=== PATIENT | female | born 1975 | race Hispanic/Latino ===

== ENCOUNTER 2019-02-06 11:07 | Emergency (ER) | payer OTHER, SELFPAY ==
--- OUTSIDE RECORDS SUMMARY | 2019-02-06 11:09 | XMS REPORT ---
:1975 Author Organization eClinicalWorks Care Team Providers Name Role Phone Chava [facility] Provider Role Unavailable Allergies No Known Allergies Problems Problem Type Condition Code Onset Dates Condition Status Problem HTN, goal below 140/90 I10 Active Problem Adult BMI 39.0-39.9 kg/sq m Z68.39 Active Problem Mixed hyperlipidemia E78.2 Active Problem Anxiety F41.9 Active Problem Fatty liver K76.0 Active Medications No Known Medications Results No Known Results Summary Purpose eClinicalWorks Submission
--- OUTSIDE RECORDS SUMMARY | 2019-02-06 11:09 | XMS REPORT ---
:1975 Author Organization eClinicalWorks Care Team Providers Name Role Phone Chava Gordo Provider Role Unavailable Allergies, Adverse Reactions, Alerts Substance Reaction Event Type N.K.D.A. Info Not Available Non Drug Allergy Problems Problem Type Condition Code Onset Dates Condition Status Assessment Fatty liver K76.0 Active Assessment Mixed hyperlipidemia E78.2 Active Assessment Adult BMI 39.0-39.9 kg/sq m Z68.39 Active Assessment Encounter for dietary counseling and Z71.3 Active surveillance Assessment Noncompliance with medication Z91.14 Active regimen Assessment Anxiety F41.9 Active Problem HTN, goal below 140/90 I10 Active Problem Adult BMI 39.0-39.9 kg/sq m Z68.39 Active Problem Mixed hyperlipidemia E78.2 Active Assessment HTN, goal below 140/90 I10 Active Problem Anxiety F41.9 Active Problem Fatty liver K76.0 Active Medications Medication Code Code Instructions Start End Status Dosage System Date Date Amlodipine [facility] 19308141017 5-20 MG Orally Active 1 capsule Besy-Benazepri once daily l HCl Results No Known Results Summary Purpose eClinicalWorks Submission
--- OUTSIDE RECORDS SUMMARY | 2019-02-06 11:09 | XMS REPORT ---
:1975 Author Organization eClinicalWorks Care Team Providers Name Role Phone Chava Gordo Provider Role Unavailable Allergies No Known Allergies [...] End Status Dosage System Date Date Amlodipine [facility] 63168266148 5-20 MG Orally Active 1 capsule Besy-Benazepri once a day l HCl Results No Known Results Summary Purpose eClinicalWorks Submission
--- OUTSIDE RECORDS SUMMARY | 2019-02-06 11:09 | XMS REPORT ---
[...] End Status Dosage System Date Date Amlodipine [facility] [id number] 5-20 MG Orally Active 1 capsule Besy-Benazepri once daily l HCl Results No Known Results Summary Purpose eClinicalWorks Submission
--- OUTSIDE RECORDS SUMMARY | 2019-02-06 11:09 | XMS REPORT ---
[...] End Status Dosage System Date Date Amlodipine [facility] [id number] 5-20 MG Orally Active 1 capsule Besy-Benazepri once daily l HCl Results No Known Results Summary Purpose eClinicalWorks Submission
[2019-02-06] MEDS ORDERED: HYDROCODONE/APAP 10/325 TAB ONE (11:55)
[2019-02-06] MEDS ORDERED: TETANUS & DIPHTHERIA TOX,ADULT 0.5 ML VIAL ONE (11:55)
[2019-02-06] MEDS ORDERED: AMPICILLIN/SULBACT 1.5 GM in NA CHLORIDE 0.9% 100 ML IVPB ONE (13:00)
--- NOTE | 2019-02-06 13:25 | ER ---
Nurse's Notes [facility] Name: Lilian Abraham Age: 43 yrs Sex: Female : 1975 Arrival Date: 02/06/2019 Time: 11:08 Bed 15 Private MD: Gordo Larsen Diagnosis: Abrasion of right hand;Bitten by cat;Laceration without foreign body of left wrist Presentation: 02/06 11:21 Presenting complaint: Patient states: was trying to break up a fight between her cats sv and 1 of the cats attacked her on the left hand/wrist. Transition of care: patient was not received from another setting of care. Onset of symptoms was February 06, 2019. Risk Assessment: Do you want to hurt yourself or someone else? Patient reports no desire to harm self or others. Care prior to arrival: None. 11:21 Method Of Arrival: Ambulatory sv 11:21 Acuity: OANH 3 sv 12:10 Initial Sepsis Screen: Does the patient meet any 2 criteria? No. Patient's initial ca1 sepsis screen is negative. Does the patient have a suspected source of infection? No. Patient's initial sepsis screen is negative. Triage Assessment: 12:09 Bite description: bite sustained to left hand is superficial, was sustained less than ca1 30 minutes ago. by a cat, animal information: vaccination(s) is current. Bite description: animal information:. General: Appears in no apparent distress. comfortable, Behavior is calm, cooperative, appropriate for age. 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 - Social history:: Smoking status: Patient/guardian denies using tobacco. - Ebola Screening: : Patient negative for fever greater than or equal to 101.5 degrees Fahrenheit, and additional compatible Ebola Virus Disease symptoms Patient denies exposure to infectious person Patient denies travel to an Ebola-affected area in the 21 days before illness onset No symptoms or risks identified at this time. Screenin:45 Abuse screen: Denies threats or abuse. Denies injuries from another. Nutritional ca1 screening: No deficits noted. Tuberculosis screening: No symptoms or risk factors identified. Fall Risk None identified. Assessment: 11:28 Reassessment: [place] PD notified, will pass on to animal hospital clerk. iw 11:45 General: Appears in no apparent distress. comfortable, Behavior is calm, cooperative, ca1 appropriate for age. Pain: Complains of pain in right hand Pain currently is 10 out of 10 on a pain scale. Neuro: Level of Consciousness is awake, alert, obeys commands, Oriented to person, place, time, situation. Derm: Skin is healthy with good turgor, Skin is pink, warm \T\ dry. Musculoskeletal: Circulation, motion, and sensation intact. Capillary refill < 3 seconds. Injury Description: Laceration sustained to left hand is contaminated, jagged, 7.6 to 20 cm long, not bleeding, was sustained less than 30 minutes ago. no active bleeding noted at this time. 12:41 Reassessment: Patient appears in no apparent distress at this time. Patient is alert, ca1 oriented x 3, equal unlabored respirations, skin warm/dry/pink. Xray at bedside. 13:16 Reassessment: Patient appears in no apparent distress at this time. Patient is alert, ca1 oriented x 3, equal unlabored respirations, skin warm/dry/pink. IV antibiotics completed and wound cleaned. 13:50 Reassessment: Patient appears in no apparent distress at this time. Patient is alert, ca1 oriented x 3, equal unlabored respirations, skin warm/dry/pink. wound dressed, wound care instructions given. Vital Signs: 11:22 BP 143 / 100; Pulse 144; Resp 22; Temp 98.6; Pulse Ox 96% ; Weight 97.98 kg; Height 5 sv ft. 3 in. (160.02 cm); Pain 10/10; 12:15 BP 136 / 88; Pulse 95; Resp 17 S; Pulse Ox 96% on R/A; ca1 13:16 BP 128 / 71; Pulse 99; Resp 17 S; Pulse Ox 97% on R/A; ca1 13:50 BP 126 / 75; Pulse 89; Resp 17 S; Pulse Ox 96% on R/A; ca1 11:22 Body Mass Index 38.26 (97.98 kg, 160.02 cm) sv ED Course: 11:08 Patient arrived in ED. mr 11:08 Gordo Larsen DO is Private Physician. mr 11:22 Triage completed. sv 11:23 Arm band placed on. sv 11:26 Myah Cleveland RN is Primary Nurse. ca1 11:27 Gordo Nieto NP is PHCP. pm1 11:27 Prashanth Kaur MD is Attending Physician. pm1 11:45 No provider procedures requiring assistance completed. ca1 11:49 Wound care: to CAT BITES located on left hand was soaked in Betadine solution, mh5 irrigated with normal saline. 11:50 Patient has correct armband on for positive identification. Bed in low position. Call mh5 light in reach. Side rails up X 1. Adult w/ patient. Pulse ox on. NIBP on. 12:05 Inserted saline lock: 22 gauge in right hand, using aseptic technique. ca1 13:24 Andrés Reyes MD is Referral Physician. pm1 13:46 Wrist Left (3 View) XRAY In Process Unspecified. EDMS 13:50 Dressings: Kerlix X 1; left hand 4X4s X 2; left hand. Wound care:. ca1 13:51 IV discontinued, intact, bleeding controlled, No redness/swelling at site. Pressure ca1 dressing applied. 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 Exp: ca1 08/19/2020. Lot #: [id number]. } Route: IM; Site: right deltoid; 12:41 Follow up: Response: No adverse reaction ca1 12:40 Drug: Unasyn 1.5 grams Route: IVPB; Infused Over: 30 mins; Site: right hand; ca1 13:29 Follow up: Response: No adverse reaction; IV Status: Completed infusion ca1 Outcome: 13:24 Discharge ordered by . pm1 13:51 Discharged to home ambulatory, with friend. ca1 13:51 Condition: stable 13:51 Discharge instructions given to patient, Instructed on discharge instructions, follow up and referral plans. medication usage, wound care, Demonstrated understanding of Prescriptions given X 2. 13:52 Patient left the ED. ca1 Signatures: Dispatcher [employer] EDMS Shasha, Fide, RN Aida Blount Irene, RN RN iw Marinas, Patrick, VINCENT TAPE RECORDING MACHINE OPERATOR pm1 Sherrill Carroll [facility] Myah Cleveland RN RN ca1 Corrections: (The following items were deleted from the chart) 13:16 13:16 Reassessment: Patient appears in no apparent distress at this time. Patient is ca1 alert, oriented x 3, equal unlabored respirations, skin warm/dry/pink. IV antibiotics completed. ca1
--- NOTE | 2019-02-06 13:25 | EDPHYS ---
Physician Documentation [facility] Name: Lilian Abraham Age: 43 yrs Sex: Female : 1975 Arrival Date: 02/06/2019 Time: 11:08 Bed 15 Private MD: Chava [facility] ED Physician Prashanth Kaur HPI: 02/06 12:05 This 43 yrs old Female presents to ER via Ambulatory with complaints of Cat pm1 Bite. 12:05 The patient was bitten on the palmar aspect of left wrist, by a cat, while trying to pm1 stop animals from fighting, at home. Onset: The symptoms/episode began/occurred just prior to arrival. Animal information: The animal was reported to appear healthy. Animal's vaccinations are up to date. Secondary to the bite the patient reports Abrasion to dorsal aspect of right hand and laceration to left wrist, palmar aspect and small puncture wound to palm of left hand. Associated signs and symptoms: Pertinent negatives: bony tenderness, fever, motor deficit, numbness distal to wound, suspected foreign body. The patient has not experienced similar symptoms in the past. The patient has not recently seen a physician. 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 - Social history:: Smoking status: Patient/guardian denies using tobacco. - Ebola Screening: : Patient negative for fever greater than or equal to 101.5 degrees Fahrenheit, and additional compatible Ebola Virus Disease symptoms Patient denies exposure to infectious person Patient denies travel to an Ebola-affected area in the 21 days before illness onset No symptoms or risks identified at this time. ROS: 12:05 Constitutional: Negative for fever, chills, and weight loss, Cardiovascular: Negative pm1 for chest pain, palpitations, and edema, Respiratory: Negative for shortness of breath, cough, wheezing, and pleuritic chest pain, Abdomen/GI: Negative for abdominal pain, nausea, vomiting, diarrhea, and constipation, Back: Negative for injury and pain. 12:05 MS/extremity: Positive for abrasion, laceration, puncture, of the left hand. 12:05 All other systems are negative. Exam: 12:05 Constitutional: This is a well developed, well nourished patient who is awake, alert, pm1 and in no acute distress. Head/Face: Normocephalic, atraumatic. Neck: Trachea midline, no thyromegaly or masses palpated, and no cervical lymphadenopathy. Supple, full range of motion without nuchal rigidity, or vertebral point tenderness. No Meningismus. Chest/axilla: Normal chest wall appearance and motion. Nontender with no deformity. No lesions are appreciated. Cardiovascular: Regular rate and rhythm with a normal S1 and S2. No gallops, murmurs, or rubs. Normal PMI, no JVD. No pulse deficits. Respiratory: Lungs have equal breath sounds bilaterally, clear to auscultation and percussion. No rales, rhonchi or wheezes noted. No increased work of breathing, no retractions or nasal flaring. Back: No spinal tenderness. No costovertebral tenderness. Full range of motion. 12:05 Musculoskeletal/extremity: Extremities: grossly normal except: noted in the palmar aspect of left wrist: laceration 2 - 1 cm long x 0.25 cm deep, noted in the heel of left hand: puncture, noted in the dorsum of left hand: abrasion, ROM: intact in all extremities, Circulation is intact in all extremities. 12:05 Neuro: Orientation: is normal, Motor: is normal, moves all fours, strength is normal, strength is 5/5 in all extremities. Vital Signs: 11:22 BP 143 / 100; Pulse 144; Resp 22; Temp 98.6; Pulse Ox 96% ; Weight 97.98 kg; Height 5 sv ft. 3 in. (160.02 cm); Pain 10/10; 12:15 BP 136 / 88; Pulse 95; Resp 17 S; Pulse Ox 96% on R/A; ca1 13:16 BP 128 / 71; Pulse 99; Resp 17 S; Pulse Ox 97% on R/A; ca1 13:50 BP 126 / 75; Pulse 89; Resp 17 S; Pulse Ox 96% on R/A; ca1 11:22 Body Mass Index 38.26 (97.98 kg, 160.02 cm) sv MDM: 11:37 Patient medically screened. pm1 13:21 Data reviewed: vital signs. Data interpreted: Pulse oximetry: on room air is 97 %. pm1 Interpretation: normal. Counseling: I had a detailed discussion with the patient and/or guardian regarding: the historical points, exam findings, and any diagnostic results supporting the discharge/admit diagnosis, radiology results, the need for outpatient follow up, to return to the emergency department if symptoms worsen or persist or if there are any questions or concerns that arise at home. 13:21 ED course: superficial lacerations not sutured due to risk of infection. Copiously pm1 irrigated with normal saline by industrial waste treatment technician. 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 Exp: ca1 08/19/2020. Lot #: [id number]. } Route: IM; Site: right deltoid; 12:41 Follow up: Response: No adverse reaction ca1 12:40 Drug: Unasyn 1.5 grams Route: IVPB; Infused Over: 30 mins; Site: right hand; ca1 13:29 Follow up: Response: No adverse reaction; IV Status: Completed infusion ca1 Disposition: 02/07 07:51 Co-signature as Attending Physician, Prashanth Kaur MD I agree with the assessment and kdr plan of care. Disposition: 02/06/19 13:24 Discharged to Home. Impression: Laceration without foreign body of left wrist, Abrasion of right hand, Bitten by cat. - Condition is Stable. - Discharge Instructions: Abrasion, Nonsutured Laceration Care, Animal Bite. - Prescriptions for Augmentin 875- 125 mg Oral Tablet - take 1 tablet by ORAL route every 12 hours for 10 days; 20 tablet. Tylenol- Codeine #3 300-30 mg Oral Tablet - take 2 tablets by ORAL route every 6 hours As needed; 20 tablet. - Medication Reconciliation Form, Thank You Letter, Antibiotic Education, Prescription Opioid Use form. - Follow up: Emergency Department; When: As needed; Reason: Worsening of condition. Follow up: Andrés Reyes MD; When: 2 - 3 days; Reason: Recheck today's complaints, Continuance of care, Re-evaluation by your physician. - Problem is new. - Symptoms have improved. Signatures: Dispatcher [employer] EDFide Luis RN RN sv Prashanth Kaur MD MD kdr Marinas, Patrick, NP DIVISION ROADMASTER pm1 Myah Cleveland RN RN ca1 Corrections: (The following items were deleted from the chart) 02/06 13:34 13:24 02/06/2019 13:24 Discharged to Home. Impression: Laceration without foreign body pm1 of right wristAbrasion of right hand; Bitten by cat. Condition is Stable. Forms are Medication Reconciliation Form, Thank You Letter, Antibiotic Education, Prescription Opioid Use. Follow up: Emergency Department; When: As needed; Reason: Worsening of condition. Follow up: Andrés Reyes; When: 2 - 3 days; Reason: Recheck today's complaints, Continuance of care, Re-evaluation by your physician. Problem is new. Symptoms have improved. pm1 13:52 13:34 02/06/2019 13:24 Discharged to Home. Impression: Laceration without foreign body ca1 of left wristAbrasion of right hand; Bitten by cat. Condition is Stable. Discharge Instructions: Abrasion, Nonsutured Laceration Care, Animal Bite. Prescriptions for Augmentin 875-125 mg Oral Tablet - take 1 tablet by ORAL route every 12 hours for 10 days; 20 tablet, Tylenol-Codeine #3 300-30 mg Oral Tablet - take 2 tablets by ORAL route every 6 hours As needed; 20 tablet. and Forms are Medication Reconciliation Form, Thank You Letter, Antibiotic Education, Prescription Opioid Use. Follow up: Emergency Department; When: As needed; Reason: Worsening of condition. Follow up: Andrés Reyes; When: 2 - 3 days; Reason: Recheck today's complaints, Continuance of care, Re-evaluation by your physician. Problem is new. Symptoms have improved. pm1
--- NOTE | 2019-02-06 14:42 | RAD REPORT ---
EXAM DESCRIPTION: RAD - Wrist Left 3 View - 02/06/2019 1:46 pm CLINICAL HISTORY: Left hand and wrist pain, animal bite COMPARISON: None. FINDINGS: No fracture is identified. There is no dislocation or periosteal reaction noted. No air or foreign body in the soft tissues. IMPRESSION: No bone or joint finding. No air or foreign body in the soft tissues.
[2019-02-06 14:59] VITALS: TEMP 98.6
[2019-02-06 15:03] VITALS: BP 126/75; O2SAT 96
== END 2019-02-06 13:52 | disposition home or self-care (01) ==
LOC: ER 11:07
DX: S61.512A Laceration without foreign body of left wrist, initial encounter (principal); S60.511A Abrasion of right hand, initial encounter; W55.01XA Bitten by cat, initial encounter; Y93.89 Activity, other specified; Y92.009 Unspecified place in unspecified non-institutional (private) residence as the place of occurrence of the external cause; Z23 Encounter for immunization; Z88.5 Allergy status to narcotic agent
CPT/HCPCS: 90471; 90714; 96365; 99284; J0295

== ENCOUNTER 2019-11-21 06:28 | Emergency (ER) | payer SELFPAY ==
--- OUTSIDE RECORDS SUMMARY | 2019-11-21 06:31 | XMS REPORT | Continuity of Care Document ---
:1975 Author Organization [facility] t Address [address] [place] [address] Care Team Providers Name Role Phone Unavailable Unavailable Unavailable Problems Condition Condition Condition Status Onset Resolution Last Treating Co mments Source Name Details Category Date Date Treatment Clinician Date Fatty Fatty Problem Active [facility] Anxiety Anxiety Problem [facility] HTN, goal HTN, goal Diagnosis Active [facility] below below [facility] - 140/90 140/90 [facility] Adult BMI Adult BMI Problem Active [facility] 39.0-39.9 39.0-39.9 Luke [facility] - kg/sq m kg/sq m [facility] Mixed Mixed Problem Active [facility] hyperlipid hyperlipid Светлана kes - emia emia [facility] Encounter Encounter Diagnosis Active [facility] for for [facility] - dietary dietary [facility] counseling counseling l and and Outpati surveillan surveillan en t ce ce Clinics Noncomplia Noncomplia Diagnosis Active [facility] with nce with [facility] - medication medication Me moria regimen regimen l [facility] ent Clinics Allergies, Adverse Reactions, Alerts This patient has no known allergies or adverse reactions. Medications Ordered Filled Start Stop Current Ordering Indication Dosage Frequency Signature Comments Components Source Medication Medication Date Date Medication? Clinician (SIG) Name Name Amlodipine Amlodipine Yes Gordo [address] [facility] Besy-Benaze Besy-Benaze Larsen [facility] - pril HCl pril HCl [facility] Procedures This patient has no known procedures. Encounters Start End Encounter Admission Attending Care Care Encounter Source Date/Time Date/Time Type Type Clinicians Facility Department ID 2019-06-03 2019-06-03 [facility] [id number] [address] 08:15[facility] 08:15:[address] Luke s - Drive [facility] Out[facility] Clinics 2019-01-24 2019-01-24 [facility] [id number] [address] 15:46:00 15:46:[address] [facility] s - Drive [facility] Clin[facility] 2018-08-30 2018-08-30 [facility] [id number] 13:30:00 13:30:00 [place] - [facility] Clin[facility] 2018-08-27 2018-08-27 [facility] [id number] 19:09:00 19:09:[address] [facility] [address] Event[facility]z s - Road [facility] Out[facility] Clinics 2018-05-06 2018-05-06 [facility] [id number] 15:14:00 15:14:00 [place] - [facility] Out[facility] Clinics 2018-04-15 2018-04-15 [facility] [id number] 09:30:00 09:30:00 [place] - Drive [facility] Clin[facility] 2017-08-24 2017-08-24 [facility] [id number] 14:00:00 14:00:00 t [email or web address] s - Drive [facility] Out[facility] Clinics Results This patient has no known results.
[2019-11-21] MEDS ORDERED: DIPHENHYDRAMINE 12.5MG/5ML LIQ ONE (07:13)
[2019-11-21] MEDS ORDERED: dexAMETHasone 10 MG/ML VIAL ONE (07:13)
[2019-11-21] MEDS ORDERED: TETRACAINE HCL 0.5% 4ML OPTH ONE (07:14)
[2019-11-21] MEDS ORDERED: PROMETHAZINE 25 MG TABLET ONE (07:14)
[2019-11-21] MEDS ORDERED: FLUORESCEIN SODIUM 1 MG/WRAP ONE (07:15)
--- NOTE | 2019-11-21 07:30 | EDPHYS ---
Physician Documentation [facility] Name: Lilian Abraham Age: 44 yrs Sex: Female : 1975 Arrival Date: 11/21/2019 Time: 06:29 Bed 7 Private MD: Chava [facility] ED Physician Roberta Vigil HPI: 11/20 07:27 This 44 yrs old Female presents to ER via Ambulatory with complaints of Eye snw Pain, Eye Swelling. 07:27 The patient is experiencing foreign body sensation, redness, tearing, eyelid edema, to snw both eyes, caused by poison gracia. Onset: The symptoms/episode began/occurred suddenly, 1 week(s) ago, and became worse and became persistent. Duration: the symptoms are continuous. Aggravated by scratching. Associated signs and symptoms: Pertinent positives: None. Severity of symptoms: At their worst the symptoms were moderate. The patient has not experienced similar symptoms in the past. It is unknown whether or not the patient has recently seen a physician. Pt wears glasses, frequent eye exams - as Son has glaucoma. 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 - Social history:: Smoking status: Patient denies any tobacco usage or history of. ROS: 07:26 Constitutional: Negative for fever, chills, and weight loss, ENT: Negative for injury, snw pain, and discharge, Neck: Negative for injury, pain, and swelling, Cardiovascular: Negative for chest pain, palpitations, and edema, Respiratory: Negative for shortness of breath, cough, wheezing, and pleuritic chest pain, Abdomen/GI: Negative for abdominal pain, nausea, vomiting, diarrhea, and constipation, Back: Negative for injury and pain, : Negative for injury, bleeding, discharge, and swelling, MS/Extremity: Negative for injury and deformity, Skin: Negative for injury and discoloration, + rash Neuro: Negative for headache, weakness, numbness, tingling, and seizure, Psych: Negative for depression, anxiety, suicide ideation, homicidal ideation, and hallucinations. 07:26 Eyes: Positive for itching, swelling, tearing, of the outer aspect of conjuctiva of right eye, inner aspect of conjuctiva of right eye, outer aspect of conjuctiva of left eye and inner aspect of conjunctiva of left eye. Exam: 07:11 Constitutional: This is a well developed, well nourished patient who is awake, alert, snw and in no acute distress. ENT: Nares patent. No nasal discharge, no septal abnormalities noted. Tympanic membranes are normal and external auditory canals are clear. Oropharynx with no redness, swelling, or masses, exudates, or evidence of obstruction, uvula midline. Mucous membranes moist. Neck: Trachea midline, no thyromegaly or masses palpated, and no cervical lymphadenopathy. Supple, full range of motion without nuchal rigidity, or vertebral point tenderness. No Meningismus. Chest/axilla: Normal chest wall appearance and motion. Nontender with no deformity. No lesions are appreciated. Cardiovascular: Regular rate and rhythm with a normal S1 and S2. No gallops, murmurs, or rubs. Normal PMI, no JVD. No pulse deficits. Respiratory: Lungs have equal breath sounds bilaterally, clear to auscultation and percussion. No rales, rhonchi or wheezes noted. No increased work of breathing, no retractions or nasal flaring. Abdomen/GI: Soft, non-tender, with normal bowel sounds. No distension or tympany. No guarding or rebound. No evidence of tenderness throughout. Back: No spinal tenderness. No costovertebral tenderness. Full range of motion. MS/ Extremity: Pulses equal, no cyanosis. Neurovascular intact. Full, normal range of motion. Neuro: Awake and alert, GCS 15, oriented to person, place, time, and situation. Cranial nerves II-XII grossly intact. Motor strength 5/5 in all extremities. Sensory grossly intact. Cerebellar exam normal. Normal gait. Psych: Awake, alert, with orientation to person, place and time. Behavior, mood, and affect are within normal limits. 07:11 Eyes: Periorbital structures: swelling, that is moderate, bilaterally, Extraocular movements: no acute changes, Conjunctiva: injected, tearing noted, in right eye, Corneas: are normal, a fluorescein strip employed to appreciate the findings, Sclera: no appreciated abnormality, Lids and lashes: edema, bilaterally. 07:11 Skin: contact dermatitis. Vital Signs: 06:37 BP 133 / 90; Pulse 92; Resp 18; Temp 98.4(O); Pulse Ox 97% on R/A; Weight 102.06 kg lp1 (R); Height 5 ft. 3 in. (160.02 cm); 08:10 BP 132 / 84; Pulse 87; Resp 18; Pulse Ox 99% on R/A; jr10 06:37 Body Mass Index 39.86 (102.06 kg, 160.02 cm) lp1 MDM: 06:48 Patient medically screened. snw 07:33 Data reviewed: vital signs, nurses notes. Data interpreted: Pulse oximetry: on room air snw is 97 %. Interpretation: normal. Counseling: I had a detailed discussion with the patient and/or guardian regarding: the historical points, exam findings, and any diagnostic results supporting the discharge/admit diagnosis, the need for outpatient follow up, to return to the emergency department if symptoms worsen or persist or if there are any questions or concerns that arise at home. Special discussion: I have referred the patient to see his PCP for further evaluation of high blood pressure. Based on the history and exam findings, there is no indication for further emergent testing or inpatient evaluation. I discussed with the patient/guardian the need to see the opthamologist for further evaluation of the symptoms, I discussed with the patient/guardian the need to see the primary care provider for further evaluation of the symptoms. 11/20 06:57 Order name: Eye Tray; Complete Time: 07:06 snw 11/20 06:57 Order name: Fluoresene Opth strip: 2 please; Complete Time: 07:16 snw Administered Medications: 07:04 Drug: Benadryl 25 mg Route: PO; mg2 07:04 Drug: Phenergan 25 mg Route: PO; mg2 07:05 Drug: Decadron - Dexamethasone 10 mg {Note: gioven po.} Route: IVP; Site: Other; mg2 07:16 Drug: Tetracaine Drops 0.5 % 1 drops {Note: given to Dulce RADIO SPORTSCASTER.} Route: Ophthalmic; sv Site: both eyes; 07:33 Drug: Fluorescein Strip 1 strip Route: Ophthalmic; Site: both eyes; mt2 07:33 Not Given (not available): ERYTHromycin Ointment 1 application Ophthalmic once snw 08:02 Drug: Tobramycin Ointment (0.3 %) 0.5 inches Route: Ophthalmic; Site: both eyes; jr10 Disposition: 17:20 Co-signature as Attending Physician, Roberta Vigil MD. al2 Disposition: 11/21/19 07:30 Discharged to Home. Impression: Irritant contact dermatitis. - Condition is Stable. - Discharge Instructions: Contact Dermatitis, Poison Gracia Dermatitis. - Prescriptions for Pepcid 20 mg Oral Tablet - take 1 tablet by ORAL route every 12 hours for 10 days; 20 tablet. Zyrtec 10 mg Oral Tablet - take 1 tablet by ORAL route once daily As needed; 20 tablet. Prednisone 20 mg Oral Tablet - take 2 tablet by ORAL route once daily for 5 days; 10 tablet. - Medication Reconciliation Form, Thank You Letter, Antibiotic Education, Prescription Opioid Use form. - Follow up: Emergency Department; When: As needed; Reason: Worsening of condition. Follow up: Private Physician; When: 1 - 2 days; Reason: Recheck today's complaints, Continuance of care, Re-evaluation by your physician. Signatures: Fide Pulliam RN Dulce Mendez, PROGRAM SUPPORT SPECIALIST-C PROGRAM SUPPORT SPECIALIST-Csnw Susan Hunt RN RN 1 Roberta Vigil MD MD al2 Thomas Klein, RACHELL RN mg2 Irma Escalante RN RN mt2 Zoey Conn RN RN jr10 Corrections: (The following items were deleted from the chart) 08:11 07:30 11/21/2019 07:30 Discharged to Home. Impression: Irritant contact dermatitis. jr10 Condition is Stable. Forms are Medication Reconciliation Form, Thank You Letter, Antibiotic Education, Prescription Opioid Use. Follow up: Emergency Department; When: As needed; Reason: Worsening of condition. Follow up: Private Physician; When: 1 - 2 days; Reason: Recheck today's complaints, Continuance of care, Re-evaluation by your physician. snw
--- NOTE | 2019-11-21 07:30 | ER ---
Nurse's Notes [facility] Name: Lilian Abraham Age: 44 yrs Sex: Female : 1975 Arrival Date: 11/21/2019 Time: 06:29 Bed 7 Private MD: Gordo Larsen Diagnosis: Irritant contact dermatitis Presentation: 11/20 06:34 Chief complaint: Patient states: contact with poison amberly last week; swelling to left lp1 eye; states feeling swelling to both eyes; rash to general body. Coronavirus screen: Client denies travel out of the [place] in the last 14 days. At this time, the client does not indicate any symptoms associated with coronavirus-19. Ebola Screen: No symptoms or risks identified at this time. Risk Assessment: Do you want to hurt yourself or someone else? Patient reports no desire to harm self or others. Onset of symptoms was November 21, 2019. 06:34 Method Of Arrival: Ambulatory lp1 06:34 Acuity: OANH 4 lp1 06:37 Initial Sepsis Screen: Does the patient meet any 2 criteria? No. Patient's initial lp1 sepsis screen is negative. Does the patient have a suspected source of infection? No. Patient's initial sepsis screen is negative. Triage Assessment: 08:10 General: Appears in no apparent distress. General: Behavior is calm, cooperative, jr10 appropriate for age. Pain: Complains of pain in right eye and left eye. 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 - Social history:: Smoking status: Patient denies any tobacco usage or history of. Screenin:36 Abuse screen: Denies threats or abuse. Denies injuries from another. Nutritional lp1 screening: No deficits noted. Tuberculosis screening: No symptoms or risk factors identified. Fall Risk None identified. Assessment: 07:15 Reassessment: Dulce DAIRY FARM SUPERVISOR at bedside. sv Vital Signs: 06:37 BP 133 / 90; Pulse 92; Resp 18; Temp 98.4(O); Pulse Ox 97% on R/A; Weight 102.06 kg lp1 (R); Height 5 ft. 3 in. (160.02 cm); 08:10 BP 132 / 84; Pulse 87; Resp 18; Pulse Ox 99% on R/A; jr10 06:37 Body Mass Index 39.86 (102.06 kg, 160.02 cm) lp1 ED Course: 06:29 Patient arrived in ED. am2 06:29 Gordo Larsen DO is Private Physician. am2 06:35 Triage completed. lp1 06:35 Arm band placed on. lp1 06:48 Dulce Chris F[facility]-C [facility] snw 06:48 Roberta Vigil MD is Attending Physician. snw 06:54 Irma Escalante, RACHELL is Primary Nurse. mt2 06:57 Patient has correct armband on for positive identification. Bed in low position. Call mh5 light in reach. Side rails up X 1. Pulse ox on. NIBP on. 07:16 Assist provider with eye exam of both eyes. using fluorescein stain, Performed by ki HEATH. 08:10 Patient did not have IV access during this emergency room visit. jr10 Administered Medications: 07:04 Drug: Benadryl 25 mg Route: PO; mg2 07:04 Drug: Phenergan 25 mg Route: PO; mg2 07:05 Drug: Decadron - Dexamethasone 10 mg {Note: gioven po.} Route: IVP; Site: Other; mg2 07:16 Drug: Tetracaine Drops 0.5 % 1 drops {Note: given to Dulce KAUR.} Route: Ophthalmic; sv Site: both eyes; 07:33 Drug: Fluorescein Strip 1 strip Route: Ophthalmic; Site: both eyes; mt2 07:33 Not Given (not available): ERYTHromycin Ointment 1 application Ophthalmic once snw 08:02 Drug: Tobramycin Ointment (0.3 %) 0.5 inches Route: Ophthalmic; Site: both eyes; jr10 Outcome: 07:30 Discharge ordered by . snw 08:10 Discharged to home ambulatory. jr10 08:10 Condition: good 08:10 Discharge instructions given to patient, Instructed on discharge instructions, follow up and referral plans. Demonstrated understanding of instructions, follow-up care, medications, Prescriptions given X 3. 08:11 Patient left the ED. jr10 Signatures: Fide Pulliam, RN RN Dulce Tripathi, POSSUM TRAPPER-C POSSUM TRAPPER-Csnw Susan Hunt RN RN lp1 Sherrill Carroll [facility] Tony, Hanny martinez2 Thomas Klein RN RN mg2 Irma Escalante RN RN mt2 Zoey Conn RN RN jr10
[2019-11-21] MEDS ORDERED: TOBRAMYCIN SULF 0.3% OPTH OINT ONE (08:06)
[2019-11-22 00:27] VITALS: TEMP 98.4
[2019-11-22 00:28] VITALS: BP 132/84; O2SAT 99
== END 2019-11-21 08:11 | disposition home or self-care (01) ==
LOC: ER 06:28
DX: L24.9 Irritant contact dermatitis, unspecified cause (principal); I10 Essential (primary) hypertension; Z88.5 Allergy status to narcotic agent
CPT/HCPCS: 96374; 99284; J1100; Q0163; Q0169

== ENCOUNTER 2020-04-17 19:50 | Emergency (ER) | payer SELFPAY ==
--- OUTSIDE RECORDS SUMMARY | 2020-04-17 19:53 | XMS REPORT | Continuity of Care Document ---
:1975 Author Organization [facility] t Address [address] Izquierdo [address] [place] [address] Care Team Providers Name Role Phone Shruti Mcgregor Attending Clinician Problems Condition Condition Condition Status Onset Resolution Last Treating Co mments Source Name Details Category Date Date Treatment Clinician Date Fatty Fatty Problem Active [facility] Anxiety Anxiety Problem [facility] HTN, goal HTN, goal Diagnosis Active C [facility] below below [facility] - 140/90 140/90 [facility] ent [facility] Adult BMI Adult BMI Problem Active [facility] 39.0-39.9 39.0-39.9 [facility] - kg/sq m kg/sq m [facility] Mixed Mixed Problem Active [facility] hyperlipid hyperlipid Светлана kes - emia emia [facility] ent Clinics Encounter Encounter Diagnosis Active C [facility] for for [facility] - dietary dietary [facility]oria counseling counseling l and and [facility] surveillan surveillan en t ce ce Clinics Noncomplia Noncomplia Diagnosis Active [facility] nce with nce with [facility] - medication medication Me moria regimen regimen l [facility] ent Clinics Allergies, Adverse Reactions, Alerts This patient has no known allergies or adverse reactions. Medications Ordered Filled Start Stop Current Ordering Indication Dosage Frequency Signature Comments Components Source Medication Medication Date Date Medication? Clinician (SIG) Name Name Amlodipine Amlodipine Yes Gordo [address] [facility]en [facility] - pril HCl pril HCl [facility] Outpati ent Clinics Procedures This patient has no known procedures. Encounters Start End Encounter Admission Attending Care Care Encounter Source Date/Time Date/Time Type Type Clinicians Facility Department ID 2020-04-12 2020-04-12 Emergency Ike Ochoa [facility] [id number] 17:37:00 18:27:00 Shruti Ghotra [id number] [place] [id number] [place] [id number] 2019-06-03 2019-06-03 [facility] [id number] 08:15:00 08:15:00 [employer] [facility] Medicine Outpati ent Clinics 2019-01-24 2019-01-24 [facility] [id number] 15:46:00 15:46:00 [employer] [facility] Medicine Outpati ent Clinics 2018-08-30 2018-08-30 [facility] [id number] 13:30:00 13:30:00 [employer] [facility] Medicine Outpati ent Clinics 2018-08-27 2018-08-27 [facility] [id number] 19:09:00 19:09:00 [facility] Medicine Outpati ent Clinics 2018-05-06 2018-05-06 [facility] [id number] 15:14:00 15:14:00 [employer] [facility] Medicine Outpati ent Clinics 2018-04-15 2018-04-15 [facility] [id number] 09:30:00 09:30:00 [employer] [facility] Medicine Outpati ent Clinics 2017-08-24 2017-08-24 [facility] [id number] 14:00:00 14:00:00 [employer] [facility] Medicine Outpati ent Clinics Results This patient has no known results.
--- OUTSIDE RECORDS SUMMARY | 2020-04-17 19:53 | XMS REPORT | Summary of Care ---
:1975 Author Organization [facility] - Health Address [address] [place] [address] Care Team Providers Name Role Phone Jeannette Carolina Travis [facility] Primary Care Provider [phone] Reason for Visit Reason Comments Rash Auth/Cert Status Reason Specialty Diagnoses / Referred By Referred To Procedures Contact Contact Emergency Medicine Ad[facility] Em ergency Dept [address] [place] [phone] Fax: Encounter Details Date Type Department Care Team Description 04/12/2020 Emergency [facility]-Emergency Ike Ochoa, BRENT Poison gracia (Primary Department [address] [place] [address] Dr Desouza) [address] [place] [address] [phone] [place] [address] [phone] Allergies Active Allergy Reactions Severity Noted Date Comments Morphine Hives 02/10/2015 documented as of this encounter (statuses as of 04/12/2020) Medications Medication Sig Dispensed Refills Start Date End Date Status losartan (COZAAR) 100 mg Take 50 mg by 0 Active tablet mouth daily. doxycycline (VIBRAMYCIN) Take 1 Cap by 20 Cap 0 02/10/2015 Active 100 mg capsule mouth 2 (two) times daily. methylPREDNISolone Take by mouth 21 Each 0 04/12/2020 Active (MEDROL, GAYLA,) 4 mg SEE-INSTRUCTIONS tabletsIndications: . 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 documented as of this encounter Last Filed Vital Signs Vital Sign Reading Time Taken Comments Blood Pressure 146/94 04/12/2020 5:35 PM [employer]ANT MANAGER Pulse 90 04/12/2020 5:35 PM [employer] MANAGER Temperature 37.2 C (98.9 F) 04/12/2020 5:35 PM [employer] MANAGER Respiratory Rate 18 04/12/2020 5:35 PM [employer]OM[employer]OWER PLANT MANAGER Oxygen Saturation 98% 04/12/2020 5:35 PM BIOM[employer] POWER PLANT MANAGER Inhaled Oxygen Concentration - - Weight 97.5 kg (215 lb) 04/12/2020 5:35 PM BIOMASS POWER PLANT MANAGER Height 160 cm (5' 3") 04/12/2020 5:35 PM BIOMASS POWER PLANT MANAGER Body Mass Index 38.09 04/12/2020 5:35 PM BIOM[employer]ANT MANAGER documented in this encounter Discharge Instructions AttachmentsThe following attachments cannot be sent through Care Everywhere. Poison Gracia, Poison [place], or Poison [place]ac Reaction, Managing a (Ukrainian)documented in this encounter ED Notes Vee Aguilar RN - 04/12/2020 5:32 PM CSTPt states "I think I got into poison gracia", c/o rash to bilateral arms and legs, abdomen, and groin. Reports itching and burning. Has taken Benadryl OTC and Hydrocortisone cream. VSS. 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 No signs of distress observed. RR even and unlabored. Encouraged to return to ER if symptoms worsen. ASS POWER PLANT MANAGER documented in this encounter Plan of Treatment Health Maintenance Due Date Last Done Comments Depression Screening 1987 SARS-CoV-2 (COVID-19) Vaccine (1 1991 of 2) DTaP,Tdap,and Td Vaccines (1 - 09/12/1994 Tdap) PAP SMEAR 09/12/1996 Breast Cancer Screening 2015 (MAMMOGRAM) INFLUENZA VACCINE (#1) 2019 PNEUMOCOCCAL 0-64 YEARS COMBINED Aged Out No longer eligible based on SERIES patient's age to complete this topic documented as of this encounter Procedures Procedure Name Priority Date/Time Associated Diagnosis Comme nts NOTICE OF PRIVACY Routine 04/12/2020 5:24 PM BIOMASS POWER PLANT MANAGER PRACTICES documented in this encounter Results Not on filedocumented in this encounter Visit Diagnoses Diagnosis Poison gracia - Primary Contact dermatitis and other eczema due to plants (except food) documented in this encounter Administered Medications Medication Order MAR Action Action Date Dose Rate Site methylprednisolone sod succ Given 04/12/2020 6:12 PM 125 mg Left Arm (SOLU-MEDROL) injection 125 mg BIOMASS POWER PLANT MANAGER 125 mg, Intramuscular, ONCE, 1 dose, Beth 04/12/20 at 1915, STAT documented in this encounter
[2020-04-17] MEDS ORDERED: METHYLPREDNISOLONE 125 MG INJ ONE (21:09)
[2020-04-17] MEDS ORDERED: FAMOTIDINE 20 MG TAB ONE (21:09)
--- NOTE | 2020-04-17 21:32 | EDPHYS ---
Physician Documentation [facility] Name: Lilian Abraham Age: 44 yrs Sex: Female : 1975 Arrival Date: 04/17/2020 Time: 19:51 Bed 12 Private MD: Chava [facility] ED Physician Wang Soriano HPI: 04/17 22:26 This 44 yrs old Female presents to ER via Ambulatory with complaints of Rash. kb 22:26 The patient's rash thought to be caused by Contact allergy. The rash is located on the kb body diffusely. The rash can be described as erythematous. Onset: The symptoms/episode began/occurred 5 day(s) ago. Associated signs and symptoms: Pertinent positives: itching. Severity of symptoms: At their worst the symptoms were moderate in the emergency department the symptoms are unchanged. Treatment given at home: Benadryl, oral steroids. The patient has not experienced similar symptoms in the past. The patient has not recently seen a physician. Pt reports she has a rash from poison gracia. Was put on steroids 5 days ago at [facility] (described medrol dose pack). Pt states the rash was getting better, but then came back yesterday and is now spreading. Started on bilateral arms, now on arms, legs and trunk. 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 - Social history:: Smoking status: Patient/guardian denies using tobacco, the patient reports quitting approximately 12 years ago. ROS: 22:25 Constitutional: Negative for fever, chills, and weight loss, Cardiovascular: Negative kb for chest pain, palpitations, and edema, Respiratory: Negative for shortness of breath, cough, wheezing, and pleuritic chest pain, Abdomen/GI: Negative for abdominal pain, nausea, vomiting, diarrhea, and constipation, MS/Extremity: Negative for injury and deformity, Neuro: Negative for headache, weakness, numbness, tingling, and seizure. 22:25 Skin: Positive for rash, diffusely. Exam: 22:25 Constitutional: This is a well developed, well nourished patient who is awake, alert, kb and in no acute distress. Head/Face: Normocephalic, atraumatic. Chest/axilla: Normal chest wall appearance and motion. Nontender with no deformity. No lesions are appreciated. Cardiovascular: Regular rate and rhythm with a normal S1 and S2. No gallops, murmurs, or rubs. Normal PMI, no JVD. No pulse deficits. Respiratory: Lungs have equal breath sounds bilaterally, clear to auscultation and percussion. No rales, rhonchi or wheezes noted. No increased work of breathing, no retractions or nasal flaring. Abdomen/GI: Soft, non-tender, with normal bowel sounds. No distension or tympany. No guarding or rebound. No evidence of tenderness throughout. MS/ Extremity: Pulses equal, no cyanosis. Neurovascular intact. Full, normal range of motion. Neuro: Awake and alert, GCS 15, oriented to person, place, time, and situation. Cranial nerves II-XII grossly intact. Motor strength 5/5 in all extremities. Sensory grossly intact. Cerebellar exam normal. Normal gait. 22:25 Skin: consistent with contact dermatitis, and is diffusely located. Vital Signs: 20:47 BP 151 / 89; Pulse 97; Resp 16 S; Temp 97.4(TE); Pulse Ox 97% on R/A; Weight 98.88 kg ca1 (R); Height 5 ft. 3 in. (160.02 cm) (R); Pain 0/10; 20:47 Body Mass Index 38.62 (98.88 kg, 160.02 cm) ca1 MDM: 20:52 Patient medically screened. kb 22:23 Data reviewed: vital signs, nurses notes. Data interpreted: Pulse oximetry: on room air kb is 97 %. Interpretation: normal. Counseling: I had a detailed discussion with the patient and/or guardian regarding: the historical points, exam findings, and any diagnostic results supporting the discharge/admit diagnosis, the need for outpatient follow up, a family practitioner, to return to the emergency department if symptoms worsen or persist or if there are any questions or concerns that arise at home. Administered Medications: 21:08 Drug: SOLU-Medrol 125 mg Route: IM; Site: right gluteus; kb 21:08 Drug: Pepcid 20 mg Route: PO; kb Disposition: 04/18 06:44 Co-signature as Attending Physician, Wang Soriano MD I agree with the assessment and aureliano plan of care. Disposition: 04/17/20 21:31 Discharged to Home. Impression: Allergic contact dermatitis due to plants, except food. - Condition is Stable. - Discharge Instructions: Poison Gracia Dermatitis, [id number], Contact Dermatitis, [id number]. - Prescriptions for Pepcid 20 mg Oral Tablet - take 1 tablet by ORAL route every 12 hours for 5 days; 10 tablet. Prednisone 20 mg Oral Tablet - take 1 tablet by ORAL route once daily for 5 days; 5 tablet. - Medication Reconciliation Form, Thank You Letter, Antibiotic Education, Prescription Opioid Use form. - Follow up: Emergency Department; When: As needed; Reason: Worsening of condition. Follow up: Private Physician; When: 2 - 3 days; Reason: Recheck today's complaints, Continuance of care, Re-evaluation by your physician. Signatures: Malinda Michele, KUMAR GUAN-Wang Yanez MD MD cha Munoz, Edgar, RN RN em Myah Cleveland RN RN ca1 Corrections: (The following items were deleted from the chart) 04/17 21:36 21:31 04/17/2020 21:31 Discharged to Home. Impression: Allergic contact dermatitis due em to plants, except food. Condition is Stable. Forms are Medication Reconciliation Form, Thank You Letter, Antibiotic Education, Prescription Opioid Use. Follow up: Emergency Department; When: As needed; Reason: Worsening of condition. Follow up: Private Physician; When: 2 - 3 days; Reason: Recheck today's complaints, Continuance of care, Re-evaluation by your physician. kb
--- NOTE | 2020-04-17 21:32 | ER ---
Nurse's Notes [facility] Name: Lilian Abraham Age: 44 yrs Sex: Female : 1975 Arrival Date: 04/17/2020 Time: 19:51 Bed 12 Private MD: Gordo Larsen Diagnosis: Allergic contact dermatitis due to plants, except food Presentation: 04/17 20:47 Chief complaint: Patient states: Rashes on upper and lower extremities and abdominal ca1 area started the weekend. Was at [facility], had shots and prescriptions. It got better, but am breaking out again. Coronavirus screen: Client denies travel out of the [place] in the last 14 days. At this time, the client does not indicate any symptoms associated with coronavirus-19. Ebola Screen: Patient negative for fever greater than or equal to 101.5 degrees Fahrenheit, and additional compatible Ebola Virus Disease symptoms Patient denies exposure to infectious person. Patient denies travel to an Ebola-affected area in the 21 days before illness onset. No symptoms or risks identified at this time. Initial Sepsis Screen: Does the patient meet any 2 criteria? No. Patient's initial sepsis screen is negative. Does the patient have a suspected source of infection? No. Patient's initial sepsis screen is negative. Risk Assessment: Do you want to hurt yourself or someone else? Patient reports no desire to harm self or others. Onset of symptoms was April 17, 2020. 20:47 Method Of Arrival: Ambulatory ca1 20:47 Acuity: OANH 4 ca1 Triage Assessment: 20:52 General: Appears in no apparent distress. comfortable, Behavior is calm, cooperative, ca1 appropriate for age. Pain: Denies pain. Neuro: Level of Consciousness is awake, alert, obeys commands, Oriented to person, place, time, situation. Derm: Skin is intact, is healthy with good turgor, Skin is pink, warm \T\ dry. Rash noted that is macular, urticaria, on abdomen, right arm, left arm, right leg and left leg. Musculoskeletal: Circulation, motion, and sensation intact. Capillary refill < 3 seconds. 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 - Social history:: Smoking status: Patient/guardian denies using tobacco, the patient reports quitting approximately 12 years ago. Screenin:53 Abuse screen: Denies threats or abuse. Denies injuries from another. Nutritional ca1 screening: No deficits noted. Tuberculosis screening: No symptoms or risk factors identified. Fall Risk None identified. Assessment: 20:53 Reassessment: See triage notes. ca1 Vital Signs: 20:47 BP 151 / 89; Pulse 97; Resp 16 S; Temp 97.4(TE); Pulse Ox 97% on R/A; Weight 98.88 kg ca1 (R); Height 5 ft. 3 in. (160.02 cm) (R); Pain 0/10; 20:47 Body Mass Index 38.62 (98.88 kg, 160.02 cm) ca1 ED Course: 19:51 Patient arrived in ED. am2 19:51 Godro Larsen DO is Private Physician. am2 20:52 Triage completed. ca1 20:52 Malinda Michele FNP-C [facility]. kb 20:52 Wang Soriano MD is Attending Physician. kb 20:52 Arm band placed on right wrist. ca1 20:53 Myah Cleveland, RN is Primary Nurse. ca1 20:53 Patient has correct armband on for positive identification. Call light in reach. Side ca1 rails up X 1. Pulse ox on. NIBP on. 21:35 No provider procedures requiring assistance completed. Patient did not have IV access em during this emergency room visit. Administered Medications: 21:08 Drug: SOLU-Medrol 125 mg Route: IM; Site: right gluteus; kb 21:08 Drug: Pepcid 20 mg Route: PO; kb Outcome: 21:31 Discharge ordered by . kb 21:35 Discharged to home ambulatory. em 21:35 Condition: good 21:35 Discharge instructions given to patient, Instructed on discharge instructions, follow up and referral plans. medication usage, Demonstrated understanding of instructions, follow-up care, medications, Prescriptions given X 2. 21:36 Patient left the ED. em Signatures: Malinda Michele FNP-C FNP-Ckb Otis Soria, RN RN em Hanny Jimenez am2 Myah Cleveland, RN RN ca1
[2020-04-17 21:52] VITALS: BP 151/89; TEMP 97.4; O2SAT 97
== END 2020-04-17 21:36 | disposition home or self-care (01) ==
LOC: ER 19:50
DX: L23.7 Allergic contact dermatitis due to plants, except food (principal); Z87.891 Personal history of nicotine dependence; I10 Essential (primary) hypertension
CPT/HCPCS: 96372; 99283; J2930

== ENCOUNTER 2021-05-08 16:23 | Emergency (ER) | payer SELFPAY ==
--- OUTSIDE RECORDS SUMMARY | 2021-05-08 16:26 | XMS REPORT | Continuity of Care Document ---
:[address] [facility] t Address [address] [place] [address] [address]. [address] [place] [address] Care Team Providers Name Role Phone Sandra Larsen Attending Clinician Unavailable CARMINE Attending Clinician Unavailable Shruti Mcgregor Attending Clinician Problems Condition Condition Condition Status Onset Resolution Last Treating Co mments Source Name Details Category Date Date Treatment Clinician Date Pyelonephr Pyelonephr Disease Active 2009-03 U nivers itis itis 0-18 [place] Bran ch Chronic Chronic Disease Active 2009-03 Univers hypertensi hypertensi 0-18 it y of on in on in 00:00: [place] obstetric obstetric 00 [facility] context context Branch Allergies, Adverse Reactions, Alerts Allergy Allergy Status Severity Reaction(s) Onset Inactive Treating Comm ents Source Name Type Date Date Clinician Morphine Propensi Active Hives 2014-03 Univer s ty to 04-12 ity of adverse 00:00: [place] reaction 00 Medical s Branch MORPHINE DRUG Active Hives 2014-03 Univers INGREDI 04-12 ity of 00:00: [place] 00 Medical Branch NO KNOWN Drug Active Univers ALLERGIE Class ity of [facility] Social History Social Habit Start Date Stop Date Quantity Comments Source Sex Assigned At Uni [facility] Exposure to SARS-CoV-2 [facility] sure [facility] [place] Smoking Status Start Date Stop Date Source Unknown if ever smoked [facility] Medications Ordered Filled Start Stop Current Ordering Indication Dosage Frequency Signature Comments Components Source Medication Medication Date Date Medication? Clinician (SIG) Name Name methylpredn No 125mg 125 mg, U nivers isolone sod 04-13 Intramuscu i ty of succ 01:15: 00:12 lar, ONCE, [place] (SOLU-MEDRO 00 :00 1 dose, Medic al L) Beth [place]ia injection 04/12/20 at 125 mg 1915, STAT methylPREDN Yes Take by [facility] ISolone 04-12 mouth ity of (MEDROL, 00:00: SEE-INSTRU Errol as GAYLA,) 4 mg 00 CTIONS. Medica l tablets follow [place] package directions losartan 2014-03 Yes 50mg Take 50 mg Uni vers (COZAAR) 04-12 by mouth ity of 100 mg 07:27: daily. [place] tablet 18 [facility] doxycycline 2014-03 Yes 100mg Take 1 Cap Univers (VIBRAMYCIN 04-12 by mouth 2 it y of ) 100 mg 00:00: (two) [place] capsule 00 times Medical daily. [place] Amlodipine Amlodipine Yes Gordo [address] [facility] HCl pril HCl [facility] Vital Signs Vital Name Observation Time Observation Value Comments Source Systolic blood 2020-04-12 23:35:00 146 mm[Hg] Univer sity of pressure [facility] Diastolic blood 2020-04-12 23:35:00 94 mm[Hg] [facility] rsity of [facility] Heart rate 2020-04-12 23:35:00 90 /min [facility] Body temperature 2020-04-12 23:35:00 37.17 Nata [facility] Respiratory rate 2020-04-12 23:35:00 18 /min [facility] Body height 2020-04-12 23:35:00 160 cm [facility] Body weight 2020-04-12 23:35:00 97.523 kg [facility] BMI 2020-04-12 23:35:00 38.09 kg/m2 Universi [facility] Oxygen saturation in 2020-04-12 23:35:00 98 /min University of Arterial blood by [facility] Pulse oximetry Branch Systolic blood 2020-04-12 23:35:00 146 mm[Hg] Univer sity of pressure [facility] Diastolic blood 2020-04-12 23:35:00 94 mm[Hg] Unive rsity of pressure [facility] Heart rate 2020-04-12 23:35:00 90 /min Universi [facility] Body temperature 2020-04-12 23:35:00 37.17 Nata [facility] Respiratory rate 2020-04-12 23:35:00 18 /min [facility] Body height 2020-04-12 23:35:00 160 cm [facility] Body weight 2020-04-12 23:35:00 97.523 kg [facility] BMI 2020-04-12 23:35:00 38.09 kg/m2 [facility] Oxygen saturation in 2020-04-12 23:35:00 98 /min University of Arterial blood by [facility] Pulse oximetry Branch Procedures Procedure Date / Time Performed Performing Clinician [facility] e NOTICE OF PRIVACY 2020-04-12 23:24:25 Doctor Unassigned, No Univ [facility] Name Medical Branch Encounters Start End Encounter Admission Attending Care Care Encounter Source Date/Time Date/Time Type Type Clinicians Facility Department ID 2021-04-10 Outpatient Lars[facility], [facility] [id number] 12:52:07 Gordo [id number] [facility] 2021-04-10 Outpatient Larsen, STLMLC [facility] [id number] 12:51:26 Gordo [id number] [facility] 2021-04-10 Outpatient Larsen, STLMLC [facility] [id number] 11:17:25 Gordo [id number] [facility] 2021-04-10 Outpatient Larsen, STLMLC [facility] [id number] 11:14:51 Gordo [id number] [facility] 2021-03-22 2021-03-22 Outpatient R CARMINE, [facility] [id number] Univers 18:15:00 18:15:00 FERNANDO olmedo [facility] 2021-01-04 2021-01-04 Outpatient STLMLC [facility] [id number] [facility] 2021-01-03 2021-01-03 Outpatient STLMLC [facility] [id number] [facility] 2021-01-03 2021-01-03 Outpatient STLMLC [facility] [id number] [facility] 2020-06-27 2020-06-27 Outpatient [facility] [id number] [facility] 2020-04-12 2020-04-12 Emergency Don, K [facility] [id number] Univers 17:37:00 18:27:00 Shruti Ghotra [id number] i ty of [place] [id number] [facility] [id number] [address] 2020-04-12 2020-04-12 Emergency Ike Ochoa [facility] [id number] 17:37:00 18:27:00 Shruti Ghotra [id number] [place] [id number] [place] [address] [id number] [facility] 2020-04-12 2020-04-12 Emergency X [facility] ERT [id number] Univers 17:24:00 17:24:00 ity of [facility] 2019-06-03 2019-06-03 [facility] [id number] 08:15:00 08:15:00 t [employer] [facility] - Drive [facility] Out[facility] Clinics 2019-01-24 2019-01-24 [facility] [id number] 15:46:00 15:46:00 [employer] - Drive [facility] Out[facility] Clin[facility] 2018-08-30 2018-08-30 [facility] [id number] 13:30:00 13:30:00 [employer] - Drive [facility] 2018-08-27 2018-08-27 [facility] [id number] 19:09:00 19:09:00 [facility] - Road [facility] 2018-05-06 2018-05-06 [facility] [id number] 15:14:00 15:14:00 t [employer] - Drive [facility] 2018-04-15 2018-04-15 [facility] [id number] 09:30:00 09:30:00 t [employer] - [facility] 2017-08-24 2017-08-24 [facility] [id number] 14:00:00 14:00:[address] [employer] - [address] [facility] Results This patient has no known results.
[2021-05-08 18:01] LABS: Absolute Lymphocytes (CBC) 1.7 K/uL (0.7-4.9); Hematocrit 40.8 % (36.0-45.0); Lymphocytes % 30.1 % (15.3-44.8); MPV 8.5 fL (7.6-11.3); Protime INR 0.92; RBC Red Blood Cell Count 4.61 M/uL (3.86-4.86)
[2021-05-08 18:15] LABS: Urine Blood 3+ (Negative); Urine Glucose Negative (Negative); Urine Protein 1+ (Negative); Urine Specific Gravity 1.015 (1.005-1.030); Urine pH 6.5 (5.0-7.0)
[2021-05-08 18:28] LABS: Urine Specific Gravity/Preg 1.015 (1.005-1.030)
--- NOTE | 2021-05-08 18:34 | RAD REPORT ---
EXAM DESCRIPTION: RAD - Chest Single View - 05/08/2021 6:16 pm CLINICAL HISTORY: CHEST PAIN Chest pain. COMPARISON: CHEST SINGLE VIEW dated 09/15/2014; CHEST SINGLE VIEW dated 07/17/2013; CHEST SINGLE VIEW da iris 02/01/2002 FINDINGS: Portable technique limits examination quality. The lungs are grossly clear. The heart is normal in size. No displaced fractures. IMPRESSION: No acute intrathoracic process suspected.
[2021-05-08 18:56] LABS: Urine Bacteria <20 /HPF (<20); Urine RBC 20-50 /HPF (NONE SEEN)
[2021-05-08 19:07] LABS: SARS-COV-2 RT PCR NEGATIVE (NEGATIVE)
[2021-05-08] MEDS ORDERED: ASPIRIN EC 81 MG TAB PO ONE (19:56)
[2021-05-08] MEDS ORDERED: METOPROLOL TAR 25 MG TAB ONE (19:56)
[2021-05-08] MEDS ORDERED: KCL 20 MEQ/100 mL IVPB 100 ML IV ONE (19:56)
[2021-05-08] MEDS ORDERED: POTASSIUM 25 MEQ EFFERV TAB ONE (20:01)
[2021-05-08] MEDS ORDERED: NA CHLORIDE 0.9% 500 ML ONE (21:21)
[2021-05-08 22:10] LABS: Albumin 3.9 g/dL (3.4-5.0); Bilirubin Direct 0.1 mg/dL (0-0.2); Bilirubin Total 0.4 mg/dL (0.2-1.0); Magnesium 2.2 mg/dL (1.8-2.4); Troponin High Sensitivity 7.9 pg/mL (<58.9)
[2021-05-08] MEDS ORDERED: LORazepam 2 MG/ML VIAL ONE (23:11)
--- NOTE | 2021-05-09 00:33 | EDPHYS ---
Physician Documentation [facility] Name: Lilian Abraham Age: 45 yrs Sex: Female : 1975 Arrival Date: 05/08/2021 Time: 16:25 Bed 26 Private MD: ED Physician Roberta Vigil HPI: 05/08 17:10 This 45 yrs old Female presents to ER via Ambulatory with complaints of cp Palpitations, Dizziness. 17:10 The patient presents with a history of heart racing. Context: The symptoms occur at cp rest. Onset: The symptoms/episode began/occurred today. Duration: The patient or guardian reports a single episode, improved. Associated signs and symptoms: Pertinent positives: lightheadedness, dizziness. 17:10 Severity of symptoms: in the emergency department the symptoms are unchanged. cp 17:10 Patient reports feeling like her heart was racing today while lying in bed. Patient cp states she called her family physician who told her to go to ED for evaluation. Patient reports history of HTN but stopped taking medication due to medication causing "right upper abdomen pain". 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 - Social history:: Smoking status: Patient denies any tobacco usage or history of. ROS: 17:15 Constitutional: Negative for body aches, chills, fever, poor PO intake. cp 17:15 Eyes: Negative for injury, pain, redness, and discharge. cp 17:15 ENT: Negative for ear pain, sore throat, difficulty swallowing, difficulty handling secretions. 17:15 Cardiovascular: Positive for palpitations, Negative for edema. 17:15 Respiratory: Negative for cough, shortness of breath, wheezing. 17:15 Abdomen/GI: Negative for abdominal pain, nausea, vomiting, and diarrhea. 17:15 Back: Negative for pain at rest, pain with movement. 17:15 Skin: Negative for cellulitis, rash. 17:15 Neuro: Positive for dizziness, Negative for altered mental status, headache, numbness, syncope, weakness. 17:15 All other systems are negative. Exam: 16:50 ECG was reviewed by the Attending Physician. cp 17:20 Constitutional: The patient appears in no acute distress, alert, awake, cp non-diaphoretic, non-toxic, well developed, well nourished. 17:20 Head/Face: Normocephalic, atraumatic. cp 17:20 Eyes: Periorbital structures: appear normal, Conjunctiva: normal, no exudate, no injection, Sclera: no appreciated abnormality, Lids and lashes: appear normal, bilaterally. 17:20 ENT: External ear(s): are unremarkable, Nose: is normal, Mouth: Lips: moist, Oral mucosa: moist, Posterior pharynx: Airway: no evidence of obstruction, patent. 17:20 Neck: ROM/movement: is normal, is supple, without pain, no range of motions limitations. 17:20 Chest/axilla: Inspection: normal, Palpation: is normal, no crepitus, no tenderness. 17:20 Cardiovascular: Rate: tachycardic, Rhythm: regular, Heart sounds: murmur, not appreciated, Edema: is not appreciated, JVD: is not appreciated. 17:20 Respiratory: the patient does not display signs of respiratory distress, Respirations: normal, no use of accessory muscles, no retractions, labored breathing, is not present, Breath sounds: are clear throughout, no decreased breath sounds, no stridor, no wheezing. 17:20 Abdomen/GI: Inspection: abdomen appears normal, Bowel sounds: active, all quadrants, Palpation: abdomen is soft and non-tender, in all quadrants, rebound tenderness, is not appreciated, voluntary guarding, is not appreciated, involuntary guarding, is not appreciated. 17:20 Back: pain, is absent, ROM is normal. 17:20 Neuro: Orientation: to person, place \\T\\ time. Mentation: is normal, Cerebellar function: is grossly normal, Motor: moves all fours, strength is normal, Sensation: is normal. 23:12 ECG was reviewed by the Attending Physician. cp Vital Signs: 16:38 BP 164 / 104; Pulse 103; Resp 16; Temp 98.1; Pulse Ox 96% ; Weight 101.15 kg; Height 5 ap3 ft. 3 in. (160.02 cm); Pain 5/10; 18:00 BP 163 / 96; Pulse 86; Resp 18; Pulse Ox 96% on R/A; ss7 19:00 BP 157 / 102; Pulse 82; Resp 21; Pulse Ox 96% ; ll3 20:00 BP 166 / 91; Pulse 79; Resp 17; Pulse Ox 97% ; ll3 21:00 BP 166 / 100; Pulse 75; Resp 19; Pulse Ox 97% ; ll3 22:00 BP 166 / 90; Pulse 81; Resp 20; Pulse Ox 98% ; ll3 23:45 BP 170 / 94; Pulse 89; Resp 17; Pulse Ox 98% on R/A; ll3 16:38 Body Mass Index 39.50 (101.15 kg, 160.02 cm) ap3 MDM: 17:33 Patient medically screened. cp 05/09 00:32 Data reviewed: vital signs, nurses notes, lab test result(s), EKG, radiologic studies, cp plain films. 00:32 Test interpretation: by ED physician or midlevel provider: ECG, plain radiologic cp studies. Counseling: I had a detailed discussion with the patient and/or guardian regarding: the historical points, exam findings, and any diagnostic results supporting the discharge/admit diagnosis, the presence of at least one elevated blood pressure reading (>120/80) during this emergency department visit, lab results, radiology results, the need for outpatient follow up, for definitive care, a family practitioner, to return to the emergency department if symptoms worsen or persist or if there are any questions or concerns that arise at home. Response to treatment: the patient's symptoms have markedly improved after treatment. 05/08 17:02 Order name: Basic Metabolic Panel; Complete Time: 22:52 ma2 05/08 21:17 Interpretation: Normal except: K 3.0; GLUC 157; GFR 84. cp 05/08 17:02 Order name: CBC with Diff; Complete Time: 19:42 ma2 05/08 17:02 Order name: LFT's; Complete Time: 22:52 ma2 05/08 22:52 Interpretation: Normal except: AST 62; ALT 120; GLOB 4.1; A/G 1.0. cp 05/08 17:02 Order name: Magnesium; Complete Time: 22:52 ma2 05/08 17:02 Order name: NT PRO-BNP; Complete Time: 22:52 ma2 05/08 17:02 Order name: PT-INR; Complete Time: 19:42 ma2 05/08 17:02 Order name: Troponin HS; Complete Time: 22:52 ma2 05/08 17:02 Order name: XRAY Chest (1 view); Complete Time: 19:42 ma2 05/08 17:56 Order name: COVID-19/FLU A+B (Document "Date of Onset" if Symptomatic); Complete Time: cp 19:42 05/08 17:56 Order name: Urine Microscopic Only; Complete Time: 19:42 cp 05/08 18:15 Order name: Urine Dipstick-Ancillary; Complete Time: 19:42 EDMS 05/08 21:17 Interpretation: Normal except: UBLD 3+; UPROT 1+; UESTR Trace. cp 05/08 18:18 Order name: Urine --Ancillary (enter results); Complete Time: 19:42 bd 05/08 23:07 Order name: Troponin High Sensitivity 05/08 23:08 Order name: Troponin High Sensitivity EDMS 05/08 17:02 Order name: EKG; Complete Time: 17:02 [facility] 05/08 17:02 Order name: Cardiac monitoring; Complete Time: 17:53 mi2 05/08 17:02 Order name: EKG - Nurse/Tech; Complete Time: 17:53 mi2 05/08 17:02 Order name: IV Saline Lock; Complete Time: 17:53 mi2 05/08 17:02 Order name: Labs collected and sent; Complete Time: 17:53 mi2 05/08 17:02 Order name: O2 Per Protocol; Complete Time: 17:53 mi2 05/08 17:02 Order name: O2 Sat Monitoring; Complete Time: 17:53 mi2 05/08 17:56 Order name: Urine Dipstick-Ancillary (obtain specimen); Complete Time: 18:26 cp 05/08 17:56 Order name: Urine Test (obtain specimen); Complete Time: 18:26 cp 05/08 22:59 Order name: EKG; Complete Time: 22:59 cp 05/08 22:59 Order name: EKG - Nurse/Tech; Complete Time: 23:37 cp EC/23 16:50 Rate is 99 beats/min. Rhythm is regular. WA interval is normal. QRS interval is normal. cp QT interval is normal. T waves are Inverted in lead aVR. Interpreted by me. Reviewed by me. 23:12 Rate is 89 beats/min. Rhythm is regular. WA interval is normal. QRS interval is normal. cp QT interval is normal. T waves are Inverted in lead aVR. Interpreted by me. Reviewed by me. Administered Medications: 20:12 Drug: Aspirin Chewable Tablet 81 mg Route: PO; ss7 20:12 Drug: Potassium Effervescent Tablet 50 mEq Route: PO; ss7 21:02 Drug: Metoprolol 25 mg Route: PO; ss7 21:25 Drug: Potassium Chloride 20 mEq Route: IV; Rate: calculated rate; Site: right forearm; ss7 23:07 CANCELLED (Physician Discretion): Ativan (LORazepam) 0.5 mg IVP once cp 23:18 Drug: Ativan (LORazepam) 1 mg Route: IVP; Site: right forearm; ll3 Disposition Summary: 05/09/21 00:32 Discharge Ordered Location: Home cp Problem: new cp Symptoms: have improved cp Condition: Stable cp Diagnosis - Palpitations cp - Hypertensive heart disease without heart failure cp - Hypokalemia cp Followup: cp - With: Tai Hines MD - When: 2 - 3 days - Reason: palpitations Discharge Instructions: - Discharge Summary Sheet cp - Potassium Content of Foods cp - Hypertension, Adult cp - Palpitations cp - Aspirin and Your Heart cp - Hypokalemia cp Forms: - Medication Reconciliation Form cp - Thank You Letter cp - Antibiotic Education cp - Prescription Opioid Use cp Prescriptions: - Metoprolol Tartrate 25 mg Oral Tablet - take 1 tablet by ORAL route 2 times per day with a meal; 60 tablet; Refills: 0, cp Product Selection Permitted - Potassium Chloride 10 mEq Oral capsule, extended release - take 1 tablet by ORAL route every 12 hours; 10 tablet; Refills: 0, Product cp Selection Permitted Signatures: Dispatcher [employer] EDMS Wang Mcfarland PA PA cp Roberta Vigil MD MD ma2 Hanny Kaba RN RN ap3 Dante High RN RN ll3 Damari Burton RN RN ss7 Corrections: (The following items were deleted from the chart) : 23:00 Ativan (LORazepam) 0.5 mg IVP once ordered. cp cp 05/10 00:31 05/08 17:10 This 45 yrs old Female presents to ER via Ambulatory with cp complaints of Palpitations, Dizziness. cp
--- NOTE | 2021-05-09 00:33 | ER ---
Nurse's Notes [facility] Name: Lilian Abraham Age: 45 yrs Sex: Female : 1975 Arrival Date: 05/08/2021 Time: 16:25 Bed 26 Private MD: Diagnosis: Palpitations;Hypertensive heart disease without heart failure;Hypokalemia Presentation: 05/08 16:38 Chief complaint: Patient states: she was laying in bed today when she started feeling ap3 palpitations. She called to make an appointment with her PCP, but was informed to come be evaluated in the ED. Patient states this has happened in the past, however she hasn't been evaluated for it by the ED or her PCP. Patient currently complains of pressure in her left anterior chest wall. Coronavirus screen: At this time, the client does not indicate any symptoms associated with coronavirus-19. Ebola Screen: No symptoms or risks identified at this time. Initial Sepsis Screen: Does the patient meet any 2 criteria? HR > 90 bpm. Does the patient have a suspected source of infection? No. Patient's initial sepsis screen is negative. Risk Assessment: Do you want to hurt yourself or someone else? Patient reports no desire to harm self or others. Onset of symptoms was May 08, 2021. 16:38 Method Of Arrival: Ambulatory ap3 16:38 Acuity: OANH 3 ap3 Triage Assessment: 16:40 General: Appears in no apparent distress. Behavior is calm, cooperative. Pain: ap3 Complains of pain in anterior aspect of left upper chest Quality of pain is described as pressure. Neuro: Level of Consciousness is awake, alert, obeys commands, Oriented to person, place, time, situation, Appropriate for age Gait is steady, Speech is normal. Cardiovascular: Reports chest pain, palpitations, Patient's skin is warm and dry. Respiratory: Airway is patent Respiratory effort is even, unlabored, Respiratory pattern is regular, symmetrical. 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 - Social history:: Smoking status: Patient denies any tobacco usage or history of. Screenin:42 Abuse screen: Denies threats or abuse. Nutritional screening: No deficits noted. ap3 Tuberculosis screening: No symptoms or risk factors identified. Fall Risk No fall in past 12 months (0 pts). Assessment: 17:45 General: Appears in no apparent distress. comfortable, Behavior is calm, cooperative, ss7 appropriate for age. Cardiovascular: Reports chest pain, Heart tones S1 S2 Rhythm is regular Chest pain. Respiratory: Breath sounds are clear bilaterally. GI: No deficits noted. Bowel sounds present X 4 quads. : No deficits noted. EENT: No deficits noted. Derm: No deficits noted. Musculoskeletal: No deficits noted. Vital Signs: 16:38 BP 164 / 104; Pulse 103; Resp 16; Temp 98.1; Pulse Ox 96% ; Weight 101.15 kg; Height 5 ap3 ft. 3 in. (160.02 cm); Pain 5/10; 18:00 BP 163 / 96; Pulse 86; Resp 18; Pulse Ox 96% on R/A; ss7 19:00 BP 157 / 102; Pulse 82; Resp 21; Pulse Ox 96% ; ll3 20:00 BP 166 / 91; Pulse 79; Resp 17; Pulse Ox 97% ; ll3 21:00 BP 166 / 100; Pulse 75; Resp 19; Pulse Ox 97% ; ll3 22:00 BP 166 / 90; Pulse 81; Resp 20; Pulse Ox 98% ; ll3 23:45 BP 170 / 94; Pulse 89; Resp 17; Pulse Ox 98% on R/A; ll3 16:38 Body Mass Index 39.50 (101.15 kg, 160.02 cm) ap3 ED Course: 16:25 Patient arrived in ED. as 16:40 Triage completed. ap3 16:41 Arm band placed on left wrist. ap3 17:28 Wang Mcfarland PA is PHCP. cp 17:28 Roberta Vigil MD is Attending Physician. cp 17:37 Damari Burton, RACHELL is Primary Nurse. ss7 17:53 Basic Metabolic Panel Sent. ss7 17:53 CBC with Diff Sent. ss7 17:53 LFT's Sent. ss7 17:53 Magnesium Sent. ss7 17:53 NT PRO-BNP Sent. ss7 17:53 PT-INR Sent. ss7 17:53 Troponin HS Sent. ss7 17:58 Troponin HS Sent. ss7 17:58 PT-INR Sent. ss7 17:58 NT PRO-BNP Sent. ss7 17:58 Magnesium Sent. ss7 17:58 LFT's Sent. ss7 17:58 CBC with Diff Sent. ss7 17:58 Basic Metabolic Panel Sent. ss7 18:16 XRAY Chest (1 view) In Process Unspecified. EDMS 18:26 Urine --Ancillary (enter results) Sent. ss7 18:26 Urine Microscopic Only Sent. ss7 18:26 COVID-19/FLU A+B (Document "Date of Onset" if Symptomatic) Sent. ss7 05/09 00:31 Tai Hines MD is Referral Physician. cp 01:08 No provider procedures requiring assistance completed. IV discontinued, intact, ll3 bleeding controlled, No redness/swelling at site. Pressure dressing applied. 01:09 Patient has correct armband on for positive identification. Bed in low position. Call 3 light in reach. Side rails up X 1. Administered Medications: 05/08 20:12 Drug: Aspirin Chewable Tablet 81 mg Route: PO; ss7 20:12 Drug: Potassium Effervescent Tablet 50 mEq Route: PO; ss7 21:02 Drug: Metoprolol 25 mg Route: PO; ss7 21:25 Drug: Potassium Chloride 20 mEq Route: IV; Rate: calculated rate; Site: right forearm; ss7 23:07 CANCELLED (Physician Discretion): Ativan (LORazepam) 0.5 mg IVP once cp 23:18 Drug: Ativan (LORazepam) 1 mg Route: IVP; Site: right forearm; ll3 Outcome: 05/09 00:32 Discharge ordered by MD. cp 01:08 Discharged to home ambulatory, with family. ll3 01:08 Condition: stable 01:08 Discharge instructions given to patient, Instructed on discharge instructions, follow up and referral plans. medication usage, Demonstrated understanding of instructions, follow-up care, medications, Prescriptions given X 2. 01:09 Patient left the ED. ll3 Signatures: Dispatcher [employer] Alessandra Ahumada Corey, PA PA cp Prokisch, Amanda RN RN gia3 Dante High RN RN ll3 Damari Burton RN RN 7
[2021-05-09 03:13] VITALS: TEMP 98.1
[2021-05-09 03:19] VITALS: O2SAT 98
[2021-05-09 03:20] VITALS: BP 170/94
== END 2021-05-09 01:09 | disposition home or self-care (01) ==
LOC: ER 16:23
DX: E87.6 Hypokalemia (principal); I11.9 Hypertensive heart disease without heart failure; I10 Essential (primary) hypertension; Z88.5 Allergy status to narcotic agent; Z20.822 Contact with and (suspected) exposure to COVID-19
CPT/HCPCS: 0240U; 36415; 71045; 80048; 80076; 81003; 81015; 81025; 83735; 83880; 84484; 85025; 85610; 93005; 96374; 96375; 99284; J3480; J7040

== ENCOUNTER → 2023-05-20 | Emergency (ER) | payer OTHER ==
--- OUTSIDE RECORDS SUMMARY | 2023-05-20 11:26 | XMS REPORT | Continuity of Care Document ---
Author Name Unknown Address [address] [facility] [place]. [address] [place] [address] [facility] thconnect Address [address] [facility] [place] [address] Care Team Providers Care User Acceptance Tester Name Role Phone Gordo Larsen Attending Clinician Unavailable [email or web address]_S Attending Clinician Unavaila FERNANDO Reddy Attending Clinician UnavailIke Faulkner Attending Clinician [email or web address]_Kadisnehala_S Admitting Clinician Unavaila ble Payers Payer Name Policy Type Policy Number Effective Date Expirati on Date Source [employer] - CHOICE (POS II) [id number] 2023 00:00:00 [facility] [id number] 2023 00:00:00 [facility] Problems Condition Name Condition Details Condition Category Status Onset Date Resolution Date Last Treatment Date Treating Clinician Comments Source Pyelonephr itis complicati ng Pyelonephr itis complicati ng Disease Active 2009-03 018 00:00: 00 [facility] Chronic hypertensi on in obstetric context Chronic hypertensi on in obstetric context Disease Active 2009-03 018 00:00: 00 [facility] [id number] Morbid obesity Problem [facility] [id number] HTN, goal below 140/90 Problem [facility] [id number] Mixed hyperlipid emia Problem [facility] [id number] Fatty liver Problem [facility] [id number] Anxiety Problem [facility] [id number] Adult BMI 39.0-39.9 kg/sq m Problem [facility] Allergies, Adverse Reactions, Alerts Allergy Name Allergy Type Status Severity Reaction(s) Onset Date Inactive Date Treating Clinician Comments Source Morphine Propensi ty to adverse reaction s Active [facility] 2014-03 00:00: 00 [facility] MORPHINE DRUG INGREDI Active [facility] 2014-03 00:00: 00 [facility] NO KNOWN ALLERGIE S Drug Class Active [facility] Social History Social Habit Start Date Stop Date Quantity Comments Source History of Tobacco Use [facility] Sex Assigned At [facility] Exposure to SARS-CoV-2 (event) Not sure [facility] Smoking Status Start Date Stop Date Source Unknown if ever smoked [facility] Former Smoker 2023-05-08 00:00:00 2023-05-08 00:00:00 [facility] Medications Ordered Medication Name Filled Medication Name Start Date Stop Date Current Medication? Ordering Clinician Indication Dosage Frequency Signature (SIG) Comments Components Source Lisinopril 20 MG Lisinopril 20 MG 3- 00:00: 00 No 1{table t} QD Lisinopril 20 MG Metoprolol Tartrate 25 MG Metoprolol Tartrate 25 MG 3- 00:00: 00 No 1{table t_with_ food} BID Metoprolol Tartrate 25 MG Azithromyci n 250 MG Azithromyci n 250 MG 2020-03 0- 00:00: 00 01-08 00:00 :00 No QD Azithromyc in 250 MG Azithromyci n 250 MG Azithromyci n 250 MG 2020-03 0-21 00:00: 00 01-08 00:00 :00 No QD Azithromyc in 250 MG Kenalog (Triamcinol one) Kenalog (Triamcinol one) 0 -14 00:00: 00 No 40mg [facility] Kenalog (Triamcinol one) Kenalog (Triamcinol one) 0 06-27 00:00: 00 No 40mg [facility] Kenalog (Triamcinol one) Kenalog (Triamcinol one) 0 06-27 00:00: 00 No 40mg [facility] Kenalog (Triamcinol one) Kenalog (Triamcinol one) 0 06-27 00:00: 00 No 40mg [facility] Kenalog (Triamcinol one) Kenalog (Triamcinol one) 0 06-27 00:00: 00 No 40mg [facility] Kenalog (Triamcinol one) Kenalog (Triamcinol one) 0 06-27 00:00: 00 No 40mg [facility] Kenalog (Triamcinol one) Kenalog (Triamcinol one) 0 06-27 00:00: 00 No 40mg [facility] Kenalog (Triamcinol one) Kenalog (Triamcinol one) 0 06-27 00:00: 00 No 40mg [facility] Kenalog (Triamcinol one) Kenalog (Triamcinol one) 0 06-27 00:00: 00 No 40mg [facility] Kenalog (Triamcinol one) Kenalog (Triamcinol one) 0 14 00:00: 00 No 40mg [facility] Kenalog (Triamcinol one) Kenalog (Triamcinol one) 0 06-27 00:00: 00 No 40mg [facility] Kenalog (Triamcinol one) Kenalog (Triamcinol one) 4-14 00:00: 00 No 40mg [facility] methylpredn isolone sod succ (SOLU-MEDRO L) injection 125 mg 04-13 01:15: 00 04-13 00:12 :00 No 125mg 125 mg, Intramuscu lar, ONCE, 1 dose, Beth 04/12/20 at 1915, STAT [facility] methylPREDN ISolone (MEDROL, GAYLA,) 4 mg tablets 04-12 00:00: 00 Yes [id number] Take by mouth SEE-INSTRU CTIONS. follow package directions [facility] losartan (COZAAR) 100 mg tablet 2014-03 07:27: 18 Yes 50mg Take 50 mg by mouth daily. [facility] doxycycline (VIBRAMYCIN ) 100 mg capsule 2014-03 00:00: 00 Yes 100mg Take 1 Cap by mouth 2 (two) times daily. [facility] Amlodipine Besy-Benaze pril HCl Amlodipine Besy-Benaze pril HCl Yes Gordo Larsen 1 capsule [facility] Clotrimazol e 1 % Clotrimazol e 1 % No 1{appli cation} BID Clotrimazo le 1 % Metoprolol Tartrate 25 MG Metoprolol Tartrate 25 MG No 1{table t_with_ food} QD Metoprolol Tartrate 25 MG Metoprolol Tartrate 25 MG Metoprolol Tartrate 25 MG No 1{table t_with_ food} BID Metoprolol Tartrate 25 MG Lisinopril 40 MG Lisinopril 40 MG No 1{table t} QD Lisinopril 40 MG Metoprolol Tartrate 25 MG Metoprolol Tartrate 25 MG No 1{table t_with_ food} BID Metoprolol Tartrate 25 MG Metoprolol Tartrate 25 MG Metoprolol Tartrate 25 MG No 1{table t_with_ food} QD Metoprolol Tartrate 25 MG Lisinopril 40 MG Lisinopril 40 MG No 1{table t} QD Lisinopril 40 MG Clotrimazol e 1 % Clotrimazol e 1 % No 1{appli cation} BID Clotrimazo le 1 % Lisinopril 40 MG Lisinopril 40 MG No 1{table t} QD Lisinopril 40 MG Lisinopril 40 MG Lisinopril 40 MG No 1{table t} QD Lisinopril 40 MG Lisinopril 40 MG Lisinopril 40 MG No 1{table t} QD Lisinopril 40 MG Lisinopril 40 MG Lisinopril 40 MG No 1{table t} QD Lisinopril 40 MG Lisinopril 40 MG Lisinopril 40 MG No 1{table t} QD Lisinopril 40 MG Lisinopril 40 MG Lisinopril 40 MG No 1{table t} QD Lisinopril 40 MG Lisinopril 40 MG Lisinopril 40 MG No 1{table t} QD Lisinopril 40 MG amLODIPine Besy-Benaze pril HCl 5-20 MG amLODIPine Besy-Benaze pril HCl 5-20 MG No 1{capsu le} QD amLODIPine Besy-Benaz epril HCl 5-20 MG Clotrimazol e 1 % Clotrimazol e 1 % No 1{appli cation} BID Clotrimazo le 1 % amLODIPine Besy-Benaze pril HCl 5-20 MG amLODIPine Besy-Benaze pril HCl 5-20 MG No 1{capsu le} QD amLODIPine Besy-Benaz epril HCl 5-20 MG Clotrimazol e 1 % Clotrimazol e 1 % No 1{appli cation} BID Clotrimazo le 1 % amLODIPine Besy-Benaze pril HCl 5-20 MG amLODIPine Besy-Benaze pril HCl 5-20 MG No 1{capsu le} QD amLODIPine Besy-Benaz epril HCl 5-20 MG Clotrimazol e 1 % Clotrimazol e 1 % No 1{appli cation} BID Clotrimazo le 1 % amLODIPine Besy-Benaze pril HCl 5-20 MG amLODIPine Besy-Benaze pril HCl 5-20 MG No 1{capsu le} QD amLODIPine Besy-Benaz epril HCl 5-20 MG Clotrimazol e 1 % Clotrimazol e 1 % No 1{appli cation} BID Clotrimazo le 1 % Clotrimazol e 1 % Clotrimazol e 1 % No 1{appli cation} BID Clotrimazo le 1 % Metoprolol Tartrate 25 MG Metoprolol Tartrate 25 MG No 1{table t_with_ food} BID Metoprolol Tartrate 25 MG Clotrimazol e 1 % Clotrimazol e 1 % No 1{appli cation} BID Clotrimazo le 1 % Metoprolol Tartrate 25 MG Metoprolol Tartrate 25 MG No 1{table t_with_ food} BID Metoprolol Tartrate 25 MG Lisinopril 20 MG Lisinopril 20 MG No 1{table t} QD Lisinopril 20 MG Metoprolol Tartrate 25 MG Metoprolol Tartrate 25 MG No 1{table t_with_ food} BID Metoprolol Tartrate 25 MG Immunizations Ordered Immunization Name Filled Immunization Name Date Status Comments Source Kenalog (Triamcinolone) Kenalog (Triamcinolone) 2020-06-27 16:47:00 Completed [facility] Kenalog (Triamcinolone) Kenalog (Triamcinolone) 2020-06-27 16:47:00 Completed [facility] Kenalog (Triamcinolone) Kenalog (Triamcinolone) 2020-06-27 16:47:00 Completed [facility] 2018-01-11 09:59:00 Completed [facility] 2018-01-11 09:59:00 Completed [facility] 2018-01-11 09:59:00 Completed [facility] 2018-01-11 09:59:00 Completed [facility] 2018-01-11 09:59:00 Completed [facility] 2018-01-11 09:59:00 Completed [facility] 2018-01-11 09:59:00 Completed [facility] Afluria Afluria 2018-01-11 09:59:00 Completed [facility] Fluarix Fluarix Unknown Completed [facility] Afluria Afluria Unknown Completed [facility] Fluarix Fluarix Unknown Completed [facility] Afluria Afluria Unknown Completed [facility] Fluarix (IIV4) - SDS - 0.5mL Fluarix (IIV4) - SDS - 0.5mL Unknown Completed [facility] Afluria Afluria Unknown Completed [facility] Fluarix (IIV4) - SDS - 0.5mL Fluarix (IIV4) - SDS - 0.5mL Unknown Completed [facility] Afluria Afluria Unknown Completed [facility] Fluarix (IIV4) - SDS - 0.5mL Fluarix (IIV4) - SDS - 0.5mL Unknown Completed [facility] Afluria Afluria Unknown Completed [facility] Fluarix (IIV4) - SDS - 0.5mL Fluarix (IIV4) - SDS - 0.5mL Unknown Completed [facility] Afluria Afluria Unknown Completed [facility] Fluarix (IIV4) - SDS - 0.5mL Fluarix (IIV4) - SDS - 0.5mL Unknown Completed [facility] Afluria Afluria Unknown Completed [facility] Vital Signs Vital Name Observation Time Observation Value Comments S ource height 2023-05-08 09:30:00 63 [in_i] Commo n [facility] weight 2023-05-08 09:30:00 217 [lb_av] Comm on [facility] temperature 2023-05-08 09:30:00 97.8 [degF] Com mon [facility] bmi 2023-05-08 09:30:00 38.44 kg/m2 Comm on [facility] oximetry 2023-05-08 09:30:00 96 % Commo n [facility] blood pressure systolic 2023-05-08 09:30:00 136 mm[Hg] [facility] blood pressure diastolic 2023-05-08 09:30:00 72 mm[Hg] [facility] height 2022-12-26 10:30:00 63 [in_i] Commo n [facility] weight 2022-12-26 10:30:00 218.6 [lb_av] Co mmon [facility] temperature 2022-12-26 10:30:00 98.3 [degF] Com mon [facility] bmi 2022-12-26 10:30:00 38.72 kg/m2 Comm on [facility] oximetry 2022-12-26 10:30:00 97 % Commo n [facility] respiratory rate 2022-12-26 10:30:00 18 /min [facility] blood pressure systolic 2022-12-26 10:30:00 130 mm[Hg] [facility] blood pressure diastolic 2022-12-26 10:30:00 77 mm[Hg] [facility] height 2022-08-22 08:50:00 63 [in_i] Commo n [facility] weight 2022-08-22 08:50:00 221 [lb_av] Comm on [facility] temperature 2022-08-22 08:50:00 97.0 [degF] Com mon [facility] bmi 2022-08-22 08:50:00 39.14 kg/m2 Comm on [facility] oximetry 2022-08-22 08:50:00 96 % Commo n [facility] respiratory rate 2022-08-22 08:50:00 16 /min [facility] blood pressure systolic 2022-08-22 08:50:00 134 mm[Hg] [facility] blood pressure diastolic 2022-08-22 08:50:00 73 mm[Hg] [facility] height 2022-05-09 09:00:00 63 [in_i] Commo n [facility] weight 2022-05-09 09:00:00 222 [lb_av] Comm on [facility] temperature 2022-05-09 09:00:00 96.9 [degF] Com mon [facility] bmi 2022-05-09 09:00:00 39.32 kg/m2 Comm on [facility] oximetry 2022-05-09 09:00:00 98 % Commo n [facility] respiratory rate 2022-05-09 09:00:00 16 /min [facility] blood pressure systolic 2022-05-09 09:00:00 138 mm[Hg] [facility] blood pressure diastolic 2022-05-09 09:00:00 88 mm[Hg] Common [facility] height 2022-02-05 09:40:00 63 [in_i] Commo n [facility] weight 2022-02-05 09:40:00 222.7 [lb_av] Co mmon [facility] temperature 2022-02-05 09:40:00 97.4 [degF] Com mon [facility] bmi 2022-02-05 09:40:00 39.45 kg/m2 Comm on [facility] oximetry 2022-02-05 09:40:00 97 % Commo n [facility] respiratory rate 2022-02-05 09:40:00 18 /min [facility] blood pressure systolic 2022-02-05 09:40:00 128 mm[Hg] [facility] blood pressure diastolic 2022-02-05 09:40:00 74 mm[Hg] Common [facility] height 2021-09-10 10:30:00 63 [in_i] Commo n [facility] weight 2021-09-10 10:30:00 228 [lb_av] Comm on [facility] temperature 2021-09-10 10:30:00 98 [degF] Comm on [facility] bmi 2021-09-10 10:30:00 40.38 kg/m2 Comm on [facility] blood pressure systolic 2021-09-10 10:30:00 138 mm[Hg] Common [facility] blood pressure diastolic 2021-09-10 10:30:00 78 mm[Hg] Common [facility] temperature 2021-05-29 11:00:00 97.2 [degF] Com [facility] bmi 2021-05-29 11:00:00 40.97 kg/m2 Comm on [facility] oximetry 2021-05-29 11:00:00 97 % Commo n [facility] respiratory rate 2021-05-29 11:00:00 17 /min [facility] blood pressure systolic 2021-05-29 11:00:00 136 mm[Hg] Common [facility] blood pressure diastolic 2021-05-29 11:00:00 72 mm[Hg] Common [facility] height 2021-05-29 11:00:00 63 [in_i] Commo n [facility] weight 2021-05-29 11:00:00 231.3 [lb_av] Co on [facility] height 2021-05-15 08:10:00 63 [in_i] Commo n [facility] weight 2021-05-15 08:10:00 227.9 [lb_av] Co [facility] temperature 2021-05-15 08:10:00 98.1 [degF] Com [facility] bmi 2021-05-15 08:10:00 40.37 kg/m2 Comm on [facility] oximetry 2021-05-15 08:10:00 96 % Commo n [facility] respiratory rate 2021-05-15 08:10:00 17 /min [facility] blood pressure systolic 2021-05-15 08:10:00 148 mm[Hg] [facility] blood pressure diastolic 2021-05-15 08:10:00 86 mm[Hg] Common [facility] height 2021-01-03 13:20:00 63 [in_i] Commo n [facility] weight 2021-01-03 13:20:00 223 [lb_av] Comm on [facility] temperature 2021-01-03 13:20:00 98 [degF] Comm on [facility] bmi 2021-01-03 13:20:00 39.5 kg/m2 Commo n [facility] Systolic blood pressure 2020-04-12 23:35:00 146 mm[Hg] [facility] Diastolic blood pressure 2020-04-12 23:35:00 94 mm[Hg] [facility] Heart rate 2020-04-12 23:35:00 90 /min [facility] Body temperature 2020-04-12 23:35:00 37.17 Nata [facility] Respiratory rate 2020-04-12 23:35:00 18 /min [facility] Body height 2020-04-12 23:35:00 160 cm [facility] Body weight 2020-04-12 23:35:00 97.523 kg [facility] BMI 2020-04-12 23:35:00 38.09 kg/m2 [facility] Oxygen saturation in Arterial blood by Pulse oximetry 2020-04-12 23:35:00 98 /min [facility] Systolic blood pressure 2020-04-12 23:35:00 146 mm[Hg] [facility] Diastolic blood pressure 2020-04-12 23:35:00 94 mm[Hg] Blanca o [facility] Heart rate 2020-04-12 23:35:00 90 /min [facility] Body temperature 2020-04-12 23:35:00 37.17 Nata [facility] Respiratory rate 2020-04-12 23:35:00 18 /min [facility] Body height 2020-04-12 23:35:00 160 cm [facility] Body weight 2020-04-12 23:35:00 97.523 kg [facility] BMI 2020-04-12 23:35:00 38.09 kg/m2 [facility] Oxygen saturation in Arterial blood by Pulse oximetry 2020-04-12 23:35:00 98 /min [facility] Procedures Procedure Date / Time Performed Performing Clinicia n Source NOTICE OF PRIVACY PRACTICES 2020-04-12 23:24:25 Doctor Unassigned, Lequire [facility] Encounters Start Date/Time End Date/Time Encounter Type Admission Type Attending Clinicians Care Facility Care Department Encounter ID Source 2023-05-19 16:00:00 Outpatient Larsen, Gordo [facility] [id number] [facility] 2023-05-05 15:03:00 Outpatient Larsen, Gordo [facility] [id number] [facility] 2022-12-24 13:34:00 Outpatient Larsen, Gordo [facility]LMLC ST[facility] [id number] [facility] 2022-08-20 14:07:00 Outpatient Larsen, Gordo [facility]ML[facility] ST[facility] [id number] [facility] 2022-05-07 08:52:05 Outpatient Larsen, Gordo [facility] ST[facility] [id number] [facility] 2022-02-04 08:01:00 Outpatient Larsen, Gordo [facility]LML[facility] ST[facility] [id number] [facility] 2021-09-10 11:07:00 Outpatient Larsen, Gordo [facility] ST[facility] [id number] [facility] 2021-08-13 14:05:00 Out[facility] [id number] [facility] 2021-05-17 08:15:01 [facility] [id number] [facility] 2021-04-10 12:52:07 Outpatient Larsen, [facility] [id number] [facility] 2021-04-10 12:51:26 Outpatient Larsen, [facility] [id number] [facility] 2021-04-10 11:17:25 [id number] [facility] 2021-04-10 11:14:51 [facility] [id number] [facility] 2023-05-08 00:00:00 2023-05-08 00:00:00 Outpatient GC_GCBZW_Ka diyala_S PRIV PRIV [id number] [facility] 2023-05-08 00:00:00 2023-05-08 00:00:00 PREV VISIT EST AGE 40-64 [facility] [id number] [facility] 2023-04-21 00:00:00 2023-04-21 00:00:00 Outpatient GC_GCBZW_Ka diyala_S PRIV PRIV [id number] [facility] 2023-04-13 00:00:00 2023-04-13 00:00:00 Outpatient GC_GCBZW_Ka diyala_S PRIV PRIV [id number] [facility] 2023-04-10 00:00:00 2023-04-10 00:00:00 Outpatient GC_GCBZW_Ka diyala_S PRIV PRIV [id number] [facility] 2023-04-07 00:00:00 2023-04-07 00:00:00 Outpatient GC_GCBZW_Ka diyala_S PRIV PRIV [id number] [facility] 2023-03-26 00:00:00 2023-03-26 00:00:00 (TEL) STLMLC STLMLC [id number] [facility] 2023-03-02 00:00:00 2023-03-02 00:00:00 (TEL) STLMLC STLMLC [id number] [facility] 2023-01-10 00:00:00 2023-01-10 00:00:00 Outpatient GC_GCBZW_Ka diyala_S PRIV PRIV [id number] [facility] 2022-12-26 00:00:00 2022-12-26 00:00:00 OFFICE VISIT ESTAB PT LEVEL 3 STL[facility]C STL[facility]C [id number] [facility] 2022-12-09 00:00:00 2022-12-09 00:00:00 (TEL) STLMLC STLMLC [id number] [facility] 2022-08-22 00:00:00 2022-08-22 00:00:00 OFFICE VISIT ESTAB PT LEVEL 4 STLMLC STLMLC [id number] [facility] 2022-05-09 00:00:00 2022-05-09 00:00:00 PREV VISIT EST AGE 40-64 STLMLC STLMLC [id number] [facility] 2022-02-05 00:00:00 2022-02-05 00:00:00 OFFICE VISIT EST PT LEVEL 3 [facility]LMLC STLMLC [id number] [facility] 2021-09-10 00:00:00 2021-09-10 00:00:00 OFFICE VISIT EST PT LEVEL 3 [facility]LMLC STL[facility]C [id number] [facility] 2021-05-29 00:00:00 2021-05-29 00:00:00 OFFICE VISIT EST PT LEVEL 3 [facility]LMLC STLMLC [id number] [facility] 2021-05-15 00:00:00 2021-05-15 00:00:00 OFFICE VISIT EST PT LEVEL 3 STLMLC STLMLC [id number] [facility] 2021-05-08 00:00:00 2021-05-08 00:00:00 (TEL) STLMLC STLMLC [id number] [facility] 2021-03-22 18:15:00 2021-03-22 18:15:00 Outpatient FERNANDO [facility]ILL[facility] [id number] [facility] 2021-01-04 00:00:00 2021-01-04 00:00:00 (TEL) STLMLC STLMLC [id number] [facility] 2021-01-03 00:00:00 2021-01-03 00:00:00 OFFICE VISIT EST PT LEVEL 3 STLMLC STLMLC [id number] [facility] 2021-01-03 00:00:00 2021-01-03 00:00:00 (TEL) STLMLC STLMLC [id number] [facility] 2020-06-27 00:00:00 2020-06-27 00:00:00 Outpatient STLMLC STL[facility]C [id number] [facility] 2020-04-12 17:37:00 2020-04-12 18:27:00 Emergency Ike Ochoa [facility] [id number] 2020-04-12 17:37:00 2020-04-12 18:27:00 [facility] [id number] [facility] 2020-04-12 17:24:00 2020-04-12 17:24:00 Emergency X [facility] [id number] [facility] 2019-06-03 08:15:00 2019-06-03 08:15:00 [facility] [address] [facility] [id number] [facility] [place] [place] [facility] 2019-01-24 15:46:00 2019-01-24 15:46:00 [facility] [address] [facility] Medicine [id number] [facility] [place] [place] [facility] 2018-08-30 13:30:00 2018-08-30 13:30:00 [facility] [place] [facility] Medicine [id number] [facility] [place] [place] [facility] 2018-08-27 19:09:00 2018-08-27 19:09:00 Out[facility] [id number] [facility] [place] [place] [facility] 2018-05-06 15:14:00 2018-05-06 15:14:00 [facility] [place] [facility] Medicine [id number] [facility] 2018-04-15 09:30:00 2018-04-15 09:30:00 [facility] [place] [facility] Medicine [id number] [facility] 2017-08-24 14:00:00 2017-08-24 14:00:00 Outpatient [facility] Medicine [id number] [facility] Results Test Description Test Time Test Comments Results Result Co mments Source HEMOGLOBIN [id number] 00:00:00* Test Item Value Reference Range Interpretation Comme nts HEMOGLOBIN A1c (test code = 4548-4) 5.8 % See_Comment H [Automated messa ge] The system which generated this result transmitted reference range: 4.2-5.6 %. The reference range was not used to interpret this result as normal/abnormal. TSH REFLEX TO FREE [id number] 00:00:00* Test Item Value Reference Range Interpretation Comme nts TSH REFLEX TO FREE T4 (test code = 89854-9) 0.897 UIU/ML See_Comment [Automated messa ge] The system which generated this result transmitted reference range: 0.400-4.100 UIU/ML. The reference range was not used to interpret this result as normal/abnormal. LIPID PANEL WITH REFLEX DIRECT [id number] 00:00:00* Test Item Value Reference Range Interpretation Comme nts CALC LDL CHOL (test code = 43250-9) 118 MG/DL See_Comment H [Automated messa ge] The system which generated this result transmitted reference range: <100 MG/DL. The reference range was not used to interpret this result as normal/abnormal. CHOLESTEROL (test code = 2093-3) 192 MG/DL See_Comment [Automated messa ge] The system which generated this result transmitted reference range: <200 MG/DL. The reference range was not used to interpret this result as normal/abnormal. HDL CHOLESTEROL (test code = 2085-9) 31 MG/DL See_Comment L [Automated messa ge] The system which generated this result transmitted reference range: >39 MG/DL. The reference range was not used to interpret this result as normal/abnormal. RISK RATIO LDL/HDL (test code = 94968-4) 3.81 RATIO See_Comment H [Automated message] The system which generated this result transmitted reference range: <3.22 RATIO. The reference range was not used to interpret this result as normal/abnormal. TRIGLYCERIDES (test code = 2571-8) 304 MG/DL See_Comment H [Automated messa ge] The system which generated this result transmitted reference range: <150 MG/DL. The reference range was not used to interpret this result as normal/abnormal. COMPREHENSIVE METABOLIC [id number] 00:00:00* Test Item Value Reference Range Interpretation Comme nts ALBUMIN (test code = 1751-7) 4.5 G/DL See_Comment [Automated messa ge] The system which generated this result transmitted reference range: 3.5-5.2 G/DL. The reference range was not used to interpret this result as normal/abnormal. ALKALINE PHOSPHATASE (test code = 6768-6) 105 U/L See_Comment [Automated message] The system which generated this result transmitted reference range: 40-118 U/L. The reference range was not used to interpret this result as normal/abnormal. BILIRUBIN, TOTAL (test code = 1975-2) <0.2 MG/DL See_Comment [Automated message] The system which generated this result transmitted reference range: <=1.2 MG/DL. The reference range was not used to interpret this result as normal/abnormal. BUN (test code = 3094-0) 11 MG/DL See_Comment [Automated messa ge] The system which generated this result transmitted reference range: 6-20 MG/DL. The reference range was not used to interpret this result as normal/abnormal. CALCIUM (test code = 06237-3) 9.5 MG/DL See_Comment [Automated messa ge] The system which generated this result transmitted reference range: 8.5-10.5 MG/DL. The reference range was not used to interpret this result as normal/abnormal. CALC A/G RATIO (test code = 1759-0) 1.6 RATIO See_Comment [Automated messa ge] The system which generated this result transmitted reference range: 1.0-2.6 RATIO. The reference range was not used to interpret this result as normal/abnormal. CALC BUN/CREAT (test code = 3097-3) 16 RATIO See_Comment [Automated messa ge] The system which generated this result transmitted reference range: 6-28 RATIO. The reference range was not used to interpret this result as normal/abnormal. CALC GLOBULIN (test code = 17398-2) 2.8 G/DL See_Comment [Automated messa ge] The system which generated this result transmitted reference range: 1.9-3.7 G/DL. The reference range was not used to interpret this result as normal/abnormal. CARBON DIOXIDE (test code = 1963-8) 27 MEQ/L See_Comment [Automated messa ge] The system which generated this result transmitted reference range: 19-31 MEQ/L. The reference range was not used to interpret this result as normal/abnormal. CHLORIDE (test code = 2075-0) 102 MEQ/L See_Comment [Automated messa ge] The system which generated this result transmitted reference range: 95-107 MEQ/L. The reference range was not used to interpret this result as normal/abnormal. CREATININE (test code = 2160-0) 0.67 MG/DL See_Comment [Automated messa ge] The system which generated this result transmitted reference range: 0.60-1.30 MG/DL. The reference range was not used to interpret this result as normal/abnormal. eGFR (2020 CKD-EPI) (test code = 96945-3) 109 ML/MIN/1.73 See_Comment [Automated message] The system which generated this result transmitted reference range: >60 ML/MIN/1.73. The reference range was not used to interpret this result as normal/abnormal. GLUCOSE (test code = 1558-6) 130 MG/DL See_Comment H [Automated messa ge] The system which generated this result transmitted reference range: 70-99 MG/DL. The reference range was not used to interpret this result as normal/abnormal. POTASSIUM (test code = 2823-3) 4.2 MEQ/L See_Comment [Automated messa ge] The system which generated this result transmitted reference range: 3.5-5.4 MEQ/L. The reference range was not used to interpret this result as normal/abnormal. PROTEIN, TOTAL (test code = 2885-2) 7.3 G/DL See_Comment [Automated messa ge] The system which generated this result transmitted reference range: 6.1-8.3 G/DL. The reference range was not used to interpret this result as normal/abnormal. AST (test code = 1920-8) 24 U/L See_Comment [Automated messa ge] The system which generated this result transmitted reference range: 9-40 U/L. The reference range was not used to interpret this result as normal/abnormal. ALT (test code = 1742-6) 31 U/L See_Comment [Automated messa ge] The system which generated this result transmitted reference range: 5-40 U/L. The reference range was not used to interpret this result as normal/abnormal. SODIUM (test code = 2951-2) 140 MEQ/L See_Comment [Automated messa ge] The system which generated this result transmitted reference range: 133-146 MEQ/L. The reference range was not used to interpret this result as normal/abnormal.
[2023-05-20 12:22] LABS: SARS-CoV-2 Antigen Rapid Res Negative (Negative)
--- NOTE | 2023-05-20 14:05 | ER ---
Nurse's Notes [facility] Name: Lilian Abraham Age: 47 yrs Sex: Female : 1975 Arrival Date: 05/20/2023 Time: 11:22 Bed IW1 Private MD: Diagnosis: Influenza due to identified novel influenza A virus with other respiratory manifestations Presentation: 05/19 11:45 Chief complaint: Patient states: FLU LIKE S/S SINCE Y/D. Coronavirus screen: At this bp time, the client does not indicate any symptoms associated with coronavirus-19. Ebola Screen: No symptoms or risks identified at this time. Initial Sepsis Screen: Does the patient meet any 2 criteria? No. Patient's initial sepsis screen is negative. Does the patient have a suspected source of infection? No. Patient's initial sepsis screen is negative. Risk Assessment: Do you want to hurt yourself or someone else? Patient reports no desire to harm self or others. Onset of symptoms is unknown. 11:45 Method Of Arrival: Ambulatory bp 11:45 Acuity: OANH 4 bp Triage Assessment: 11:46 General: Appears in no apparent distress. Behavior is cooperative, appropriate for age, bp anxious. Pain: Complains of pain in neck. Historical: - Allergies: 11:46 Morphine; bp - PMHx: 11:46 Hypertension; bp - Immunization history:: Adult Immunizations up to date. - Social history:: Smoking status: Patient denies any tobacco usage or history of. - Family history:: not pertinent. - Hospitalizations: : No recent hospitalization is reported. Screenin:17 [facility] ED Fall Risk Assessment (Adult) History of falling in the last 3 months, bp including since admission No falls in past 3 months (0 pts). Abuse screen: Denies threats or abuse. Denies injuries from another. Nutritional screening: No deficits noted. Tuberculosis screening: No symptoms or risk factors identified. Assessment: 14:17 Reassessment: DC HOME AMBULATORY. bp Vital Signs: 11:45 BP 156 / 93; Pulse 85; Resp 16; Temp 98; Pulse Ox 95% ; Weight 98.43 kg; Height 5 ft. 3 bp in. ; 11:45 Body Mass Index 38.44 (98.43 kg, 160.02 cm) bp ED Course: 11:24 Patient arrived in ED. mg5 11:30 Stevie Kumar MD is Attending Physician. rn 11:46 Triage completed. bp 11:46 Arm band placed on. bp 11:51 Strep Sent. bp 11:51 Flu Sent. bp 11:51 SARS RAPID Sent. bp 14:17 Darinel Mathis, RN is Primary Nurse. bp 14:17 Patient has correct armband on for positive identification. bp 14:17 No provider procedures requiring assistance completed. Patient did not have IV access bp during this emergency room visit. Administered Medications: No medications were administered Medication: 14:17 VIS not applicable for this client. bp Outcome: 14:04 Discharge ordered by . rn 14:17 Discharged to home ambulatory, bp 14:17 Condition: stable 14:17 Discharge instructions given to patient, Instructed on discharge instructions, follow up and referral plans. medication usage, Demonstrated understanding of instructions, follow-up care, medications, Prescriptions given X 1, 14:19 Patient left the ED. bp Signatures: Stevie Kumar MD MD rn Peltier, Brian, RACHELL RN bp Hermelinda Guerrier mg5 Corrections: (The following items were deleted from the chart) 11:47 11:45 Pulse 85bpm; Resp 16bpm; Pulse Ox 95%; Temp 98F; 98.43 kg; Height 5 ft. 3 in.; bp BMI: 38.4; bp
--- NOTE | 2023-05-20 14:05 | EDPHYS ---
Physician Documentation [facility] Name: Lilian Abraham Age: 47 yrs Sex: Female : 1975 Arrival Date: 05/20/2023 Time: 11:22 Bed IW1 Private MD: ED Physician Stevie Kumar HPI: 05/19 12:49 This 47 yrs old Female presents to ER via Ambulatory with complaints of Flu rn Symptoms. 12:49 The patient or guardian reports flu symptoms. Onset: The symptoms/episode rn began/occurred yesterday. Severity of symptoms: At their worst the symptoms were mild, in the emergency department the symptoms are unchanged. Modifying factors: The symptoms are alleviated by nothing, the symptoms are aggravated by nothing. The patient has not experienced similar symptoms in the past. The patient has not recently seen a physician. Patient reports a daughter with flulike illness this past week. Diagnosed with flu. Now patient with flulike symptoms including cough and upper respiratory infection.. Historical: - Allergies: 11:46 Morphine; bp - PMHx: 11:46 Hypertension; bp - Immunization history:: Adult Immunizations up to date. - Social history:: Smoking status: Patient denies any tobacco usage or history of. - Family history:: not pertinent. - Hospitalizations: : No recent hospitalization is reported. ROS: 13:23 Constitutional: Positive for subjective fever and chills ENT: Positive for nasal rn congestion and sore throat Cardiovascular: Negative for chest pain, palpitations, and edema, Respiratory: Positive for cough, negative for shortness of breath Abdomen/GI: Negative for abdominal pain, nausea, vomiting, diarrhea, and constipation, MS/Extremity: Negative for injury and deformity, Skin: Negative for injury, rash, and discoloration, Neuro: Negative for headache, weakness, numbness, tingling, and seizure, Exam: 13:23 Constitutional: This is a well developed, well nourished patient who is awake, alert, rn and in no acute distress. ENT: Mild tonsillar hypertrophy, no stridor Cardiovascular: Regular rate and rhythm. No pulse deficits. Respiratory: No increased work of breathing, no retractions or nasal flaring. Abdomen/GI: Soft, non-tender MS/ Extremity: Pulses equal, no cyanosis. Neuro: Awake and alert, GCS 15 Vital Signs: 11:45 BP 156 / 93; Pulse 85; Resp 16; Temp 98; Pulse Ox 95% ; Weight 98.43 kg; Height 5 ft. 3 bp in. ; 11:45 Body Mass Index 38.44 (98.43 kg, 160.02 cm) bp MDM: 11:31 Patient medically screened. rn 14:03 Differential Diagnosis: Influenza Upper Respiratory Infection Viral Syndrome. Data rn reviewed: vital signs, nurses notes, lab test result(s), and as a result, I will discharge patient. Counseling: I had a detailed discussion with the patient and/or guardian regarding the historical points, exam findings, and any diagnostic results supporting the discharge/admit diagnosis, lab results, the need for outpatient follow up, to return to the emergency department if symptoms worsen or persist or if there are any questions or concerns that arise at home. Special discussion: I discussed with the patient/guardian in detail that at this point there is no indication for admission to the hospital. It is understood, however, that if the symptoms persist or worsen the patient needs to return immediately for re-evaluation. 05/19 11:31 Order name: SARS RAPID; Complete Time: 14:03 rn 05/19 11:31 Order name: Flu; Complete Time: 14:03 rn 05/19 11:31 Order name: Strep rn 05/19 12:08 Order name: Throat Culture EDMS Administered Medications: No medications were administered Disposition Summary: 05/20/23 14:04 Discharge Ordered Notes: Location: Home rn Problem: new rn Symptoms: have improved rn Condition: Stable rn Diagnosis - Influenza due to identified novel influenza A virus with other respiratory rn manifestations Followup: rn - With: Private Physician - When: As needed - Reason: Recheck today's complaints, Re-evaluation by your physician Discharge Instructions: - Discharge Summary Sheet rn - Influenza, Adult rn Forms: - Medication Reconciliation Form rn - Thank You Letter rn - Antibiotic rn baby - Prescription Opioid Use rn - Patient Portal Instructions rn - Leadership Thank You Letter rn Prescriptions: - Tamiflu 75 mg Oral capsule - take 1 tablet ORAL route every 12 hours for 5 days; 10 tablet; Refills: 0, rn Product Selection Permitted Signatures: Dispatcher [employer] EDStevie Faria MD MD rn Peltier, Brian, RN RN bp
[2023-05-20 14:40] VITALS: BP 156/93; TEMP 98; O2SAT 95
== END ==
LOC: ER 11:22
DX: J10.1 Influenza due to other identified influenza virus with other respiratory manifestations (principal); Z11.52 Encounter for screening for COVID-19; Z88.5 Allergy status to narcotic agent
CPT/HCPCS: 36415; 87070; 87081; 87804; 87811; 99283

== ENCOUNTER 2024-05-29 22:26 | Emergency (ER) | payer OTHER, SELFPAY ==
--- OUTSIDE RECORDS SUMMARY | 2024-05-29 22:30 | XMS REPORT | Continuity of Care Document ---
Author Name Unknown Address [address] [place] [address] [facility] Address [address] [place] [address] Care Team Providers Care Production Internship Name Role Phone Gordo Larsen Primary Care Physician [phone] Gordo Larsen Attending Clinician Unavailable ES SNEED Attending Clinician Unavailable Es Sneed MD Attending Clinician [phone] [email or web address]_S Attending Clinician UnavailFERNANDO Teixeira Attending Clinician UnavailIke Faulkner Attending Clinician [phone] [email or web address]_S Admitting Clinician Unavaila ble Payers Payer Name Policy Type Policy Number Effective Date Expirati on Date Source AET[employer] - CHOICE (POS II) [id number] 2023 00:00:00 [facility] [employer] 53 [id number] 2023 00:00:00 [facility] Problems Condition Name Condition Details Condition Category Status Onset Date Resolution Date Last Treatment Date Treating Clinician Comments Source Pyelonephr itis complicati ng Pyelonephr itis complicati ng Disease Active 2009-03 00:00: 00 [facility] Pyelonephr itis complicati ng Pyelonephr itis complicati ng Disease Active 2009-03 00:00: 00 [facility] Chronic hypertensi on in obstetric context Chronic hypertensi on in obstetric context Disease Active 2009-03 00:00: 00 [facility] [id number] Morbid obesity Problem [facility] [id number] HTN, goal below 140/90 Problem [facility] [id number] Mixed hyperlipid emia Problem [facility] [id number] Fatty liver Problem [facility] [id number] Anxiety Problem [facility] [id number] Adult BMI 39.0-39.9 kg/sq m Problem [facility] Allergies, Adverse Reactions, Alerts Allergy Name Allergy Type Status Severity Reaction(s) Onset Date Inactive Date Treating Clinician Comments Source Morphine Propensi ty to adverse reaction s Active Hives 2014-03 00:00: 00 [facility] MORPHINE DRUG INGREDI Active Hives 2014-03 00:00: 00 [facility] NO KNOWN ALLERGIE S Drug Class Active [facility] Social History Social Habit Start Date Stop Date Quantity Comments Source History of Tobacco Use [facility] Sex Assigned At [facility] Sexual orientation U [facility] Exposure to SARS-CoV-2 (event) Not sure [facility] History of Social function 2014-09-07 00:00:00 2014-09-07 00:00:00 [facility] Smoking Status Start Date Stop Date Source Tobacco smoking consumption unknown [facility] Former Smoker 2023-09-03 00:00:00 2023-09-03 00:00:00 [facility] Medications Ordered Medication Name Filled Medication Name Start Date Stop Date Current Medication? Ordering Clinician Indication Dosage Frequency Signature (SIG) Comments Components Source fluconazole 150 mg tablet 08-20 00:00: 00 08-21 04:59 :00 No [id number] 150mg Take 1 tablet by mouth once now for 1 dose. [facility] Kenalog (Triamcinol one) Kenalog (Triamcinol one) 14 00:00: 00 No 40mg [facility] methylpredn isolone sod succ (SOLU-MEDRO L) injection 125 mg 04-13 01:15: 00 04-13 00:12 :00 No 125mg 125 mg, Intramuscu lar, ONCE, 1 dose, Beth 04/12/20 at 1915, STAT [facility] methylPREDN ISolone (MEDROL, GAYLA,) 4 mg tablets 04-12 00:00: 00 Yes [id number] Take by mouth SEE-INSTRU CTIONS. follow package directions [facility] losartan (COZAAR) 100 mg tablet 2014-03 07:27: 18 Yes 50mg Take 50 mg by mouth daily. [facility] losartan (COZAAR) 100 mg tablet 2014-03 01:27: 18 Yes 50mg Take 50 mg by mouth daily. [facility] doxycycline (VIBRAMYCIN ) 100 mg capsule 2014-03 00:00: 00 Yes 100mg Take 1 Cap by mouth 2 (two) times daily. [facility] Lisinopril 40 MG Lisinopril 40 MG No 1{table t} QD Lisinopril 40 MG Immunizations Ordered Immunization Name Filled Immunization Name Date Status Comments Source Kenalog (Triamcinolone) Kenalog (Triamcinolone) 2020-06-27 16:47:00 Completed [facility] Kenalog (Triamcinolone) Kenalog (Triamcinolone) 2020-06-27 16:47:00 Completed [facility] Afluria Afluria 2018-01-11 09:59:00 Completed [facility] Afluria Afluria 2018-01-11 09:59:00 Completed [facility] Afluria Afluria 2018-01-11 09:59:00 Completed [facility] Fluarix Fluarix Unknown Completed Common [facility] Afluria Afluria Unknown Completed [facility] Fluarix Fluarix Unknown Completed [facility] Afluria Afluria Unknown Completed [facility] Fluarix (IIV4) - SDS - 0.5mL Fluarix (IIV4) - SDS - 0.5mL Unknown Completed [facility] Afluria Afluria Unknown Completed Common [facility] Fluarix (IIV4) - SDS - 0.5mL Fluarix (IIV4) - SDS - 0.5mL Unknown Completed [facility] Afluria Afluria Unknown Completed Common [facility] Fluarix (IIV4) - SDS - 0.5mL Fluarix (IIV4) - SDS - 0.5mL Unknown Completed [facility] Afluria Afluria Unknown Completed Common [facility] rit [facility] Fluarix (IIV4) - SDS - 0.5mL Fluarix (IIV4) - SDS - 0.5mL Unknown Completed [facility] Afluria Afluria Unknown Completed Common [facility] rit [facility] Fluarix (IIV4) - SDS - 0.5mL Fluarix (IIV4) - SDS - 0.5mL Unknown Completed [facility] Afluria Afluria Unknown Completed Common [facility] rit [facility] Fluarix (IIV4) - SDS - 0.5mL Fluarix (IIV4) - SDS - 0.5mL Unknown Completed [facility] Afluria Afluria Unknown Completed [facility] Fluarix (IIV4) - SDS - 0.5mL Fluarix (IIV4) - SDS - 0.5mL Unknown Completed [facility] Afluria Afluria Unknown Completed Common [facility] Vital Signs Vital Name Observation Time Observation Value Comments S keyannace Systolic blood pressure 2023-08-21 06:41:00 171 mm[Hg] [facility] Diastolic blood pressure 2023-08-21 06:41:00 107 mm[Hg] [facility] Heart rate 2023-08-21 06:41:00 77 /min [facility] Body temperature 2023-08-21 06:41:00 36.78 Nata [facility] Respiratory rate 2023-08-21 06:41:00 18 /min [facility] Body height 2023-08-21 06:41:00 160 cm [facility] Body weight 2023-08-21 06:41:00 101.152 kg [facility] BMI 2023-08-21 06:41:00 39.50 kg/m2 [facility] Oxygen saturation in Arterial blood by Pulse oximetry 2023-08-21 06:41:00 98 /min [facility] height 2023-05-08 09:30:00 63 [in_i] [facility] weight 2023-05-08 09:30:00 217 [lb_av] Comm on [facility] temperature 2023-05-08 09:30:00 97.8 [degF] Com mon [facility] bmi 2023-05-08 09:30:00 38.44 kg/m2 Comm on [facility] oximetry 2023-05-08 09:30:00 96 % [facility] blood pressure systolic 2023-05-08 09:30:00 136 mm[Hg] Common [facility] blood pressure diastolic 2023-05-08 09:30:00 72 mm[Hg] Common [facility] height 2023-05-08 09:30:00 63 [in_i] [facility] weight 2023-05-08 09:30:00 217 [lb_av] Comm on [facility] temperature 2023-05-08 09:30:00 97.8 [degF] Com mon [facility] bmi 2023-05-08 09:30:00 38.44 kg/m2 Comm on [facility] oximetry 2023-05-08 09:30:00 96 % [facility] blood pressure systolic 2023-05-08 09:30:00 136 mm[Hg] [facility] blood pressure diastolic 2023-05-08 09:30:00 72 mm[Hg] [facility] height 2022-12-26 10:30:00 63 [in_i] [facility] weight 2022-12-26 10:30:00 218.6 [lb_av] Co mmon [facility] temperature 2022-12-26 10:30:00 98.3 [degF] Com mon [facility] bmi 2022-12-26 10:30:00 38.72 kg/m2 Comm on [facility] oximetry 2022-12-26 10:30:00 97 % [facility] respiratory rate 2022-12-26 10:30:00 18 /min [facility] blood pressure systolic 2022-12-26 10:30:00 130 mm[Hg] Common [facility] blood pressure diastolic 2022-12-26 10:30:00 77 mm[Hg] [facility] height 2022-08-22 08:50:00 63 [in_i] [facility] weight 2022-08-22 08:50:00 221 [lb_av] Comm on [facility] temperature 2022-08-22 08:50:00 97.0 [degF] Com mon [facility] bmi 2022-08-22 08:50:00 39.14 kg/m2 Comm on [facility] oximetry 2022-08-22 08:50:00 96 % [facility] respiratory rate 2022-08-22 08:50:00 16 /min Common [facility] blood pressure systolic 2022-08-22 08:50:00 134 mm[Hg] [facility] blood pressure diastolic 2022-08-22 08:50:00 73 mm[Hg] [facility] height 2022-05-09 09:00:00 63 [in_i] [facility] weight 2022-05-09 09:00:00 222 [lb_av] Comm on [facility] temperature 2022-05-09 09:00:00 96.9 [degF] Com [facility] bmi 2022-05-09 09:00:00 39.32 kg/m2 Comm on [facility] oximetry 2022-05-09 09:00:00 98 % [facility] respiratory rate 2022-05-09 09:00:00 16 /min [facility] blood pressure systolic 2022-05-09 09:00:00 138 mm[Hg] Common [facility] blood pressure diastolic 2022-05-09 09:00:00 88 mm[Hg] Common [facility] height 2022-02-05 09:40:00 63 [in_i] [facility] weight 2022-02-05 09:40:00 222.7 [lb_av[facility] 2022-[facility]-05 09:40:00 97.4 [degF] Com [facility] bmi 2022-02-05 09:40:00 39.45 kg/m2 Comm on [facility] oximetry 2022-02-05 09:40:00 97 % [facility] respiratory rate 2022-02-05 09:40:00 18 /min Common [facility] blood pressure systolic 2022-02-05 09:40:00 128 mm[Hg] [facility] blood pressure diastolic 2022-02-05 09:40:00 74 mm[Hg] Common [facility] height 2021-09-10 10:30:00 63 [in_i] [facility] weight 2021-09-10 10:30:00 228 [lb_av] Comm on [facility] temperature 2021-09-10 10:30:00 98 [degF] Comm on [facility] bmi 2021-09-10 10:30:00 40.38 kg/m2 Comm [facility] blood pressure systolic 2021-09-10 10:30:00 138 mm[Hg] [facility] blood pressure diastolic 2021-09-10 10:30:00 78 mm[Hg] [facility] temperature 2021-05-29 11:00:00 97.2 [degF] Com mon [facility] bmi 2021-05-29 11:00:00 40.97 kg/m2 Comm on [facility] oximetry 2021-05-29 11:00:00 97 % [facility] respiratory rate 2021-05-29 11:00:00 17 /min [facility] blood pressure systolic 2021-05-29 11:00:00 136 mm[Hg] [facility] blood pressure diastolic 2021-05-29 11:00:00 72 mm[Hg] [facility] height 2021-05-29 11:00:00 63 [in_i] [facility] weight 2021-05-29 11:00:00 231.3 [lb_av] Co mmon [facility] height 2021-05-15 08:10:00 63 [in_i] [facility] weight 2021-05-15 08:10:00 227.9 [lb_av] Co mmon [facility] temperature 2021-05-15 08:10:00 98.1 [degF] Com mon [facility] bmi 2021-05-15 08:10:00 40.37 kg/m2 Comm on [facility] oximetry 2021-05-15 08:10:00 96 % [facility] respiratory rate 2021-05-15 08:10:00 17 /min Common [facility] blood pressure systolic 2021-05-15 08:10:00 148 mm[Hg] Common [facility] blood pressure diastolic 2021-05-15 08:10:00 86 mm[Hg] Common [facility] height 2021-01-03 13:20:00 63 [in_i] [facility] weight 2021-01-03 13:20:00 223 [lb_av] Comm on [facility] temperature 2021-01-03 13:20:00 98 [degF] Comm on [facility] bmi 2021-01-03 13:20:00 39.5 kg/m2 [facility] Systolic blood pressure 2020-04-12 23:35:00 146 mm[Hg] [facility] Diastolic blood pressure 2020-04-12 23:35:00 94 mm[Hg] [place] [facility] Heart rate 2020-04-12 23:35:00 90 /min [facility] Body temperature 2020-04-12 23:35:00 37.17 Nata [facility] Respiratory rate 2020-04-12 23:35:00 18 /min [facility] Body height 2020-04-12 23:35:00 160 cm [facility] Body weight 2020-04-12 23:35:00 97.523 kg [facility] BMI 2020-04-12 23:35:00 38.09 kg/m2 [facility] Oxygen saturation in Arterial blood by Pulse oximetry 2020-04-12 23:35:00 98 /min [facility] Systolic blood pressure 2020-04-12 23:35:00 146 mm[Hg] [facility] Diastolic blood pressure 2020-04-12 23:35:00 94 mm[Hg] [facility] Heart rate 2020-04-12 23:35:00 90 /min [facility] Body temperature 2020-04-12 23:35:00 37.17 Nata [facility] Respiratory rate 2020-04-12 23:35:00 18 /min [facility] Body height 2020-04-12 23:35:00 160 cm [facility] Body weight 2020-04-12 23:35:00 97.523 kg [facility] BMI 2020-04-12 23:35:00 38.09 kg/m2 [facility] Oxygen saturation in Arterial blood by Pulse oximetry 2020-04-12 23:35:00 98 /min [facility] Procedures Procedure Date / Time Performed Performing Clinicia n Source URINALYSIS 2023-08-21 07:32:00 Es Sneed [facility] NOTICE OF PRIVACY PRACTICES 2020-04-12 23:24:25 Doctor Unassigned, Bier [facility] Encounters Start Date/Time End Date/Time Encounter Type Admission Type Attending Clinicians Care Facility Care Department Encounter ID Source 2023-09-09 09:19:00 Outpatient Gordo Larsen [facility] [id number] [facility] 2023-05-19 16:00:00 Outpatient Omkar Larsenh [facility] [id number] [facility] 2023-05-05 15:03:00 Outpatient Larsen, Gordo [facility] ST[facility] [id number] [facility] 2022-12-24 13:34:00 Outpatient Larsen, Gordo [facility]C STL[facility]C [id number] [facility] 2022-08-20 14:07:00 Outpatient Larsen, Gordo [facility]C STL[facility]C [id number] [facility] 2022-05-07 08:52:05 Outpatient Larsen, Gordo [facility] STL[facility] [id number] [facility] 2022-02-04 08:01:00 Outpatient Larsen, Gordo [facility]C STL[facility]C [id number] [facility] 2021-09-10 11:07:00 Outpatient Larsen, Gordo [facility]C STL[facility]C [id number] [facility] 2021-08-13 14:05:00 Outpatient Larsen, Gordo [facility]C STL[facility]C [id number] [facility] 2021-05-17 08:15:01 Outpatient Larsen, Gordo [facility] ST[facility] [id number] [facility] 2021-04-10 12:52:07 Outpatient Larsen, Gordo [facility] ST[facility] [id number] [facility] 2021-04-10 12:51:26 Outpatient Larsen, Gordo [facility]C STL[facility] [id number] [facility] 2021-04-10 11:17:25 Outpatient Larsen, Gordo [facility]C STL[facility]C [id number] [facility] 2021-04-10 11:14:51 Outpatient Larsen, Gordo [facility]C STL[facility]C [id number] [facility] 2024-03-07 00:00:00 2024-03-07 00:00:00 (TEL) STLMLC STLMLC [id number] [facility] 2023-09-11 00:00:00 2023-09-11 00:00:00 (TEL) STLC STLC [id number] [facility] 2023-08-21 01:45:00 2023-08-21 04:04:00 Emergency X ES SNEED [facility] ERT [id number] [facility] 2023-08-21 01:45:00 2023-08-21 04:04:00 Emergency Es Sneed [facility] [id number] [facility] 2023-06-06 00:00:00 2023-06-06 00:00:00 Outpatient GC_GCBZW_Ka diyala_S PRIV PRIV [id number] [facility] 2023-05-19 00:00:00 2023-05-19 00:00:00 (TEL) STLC STLC [id number] [facility] 2023-05-08 00:00:00 2023-05-08 00:00:00 Outpatient GC_GCBZW_Ka diyala_S PRIV PRIV [id number] [facility] 2023-05-08 00:00:00 2023-05-08 00:00:00 PREV VISIT EST AGE 40-64 STLMLC STLC [id number] [facility] 2023-04-21 00:00:00 2023-04-21 00:00:00 Outpatient GC_GCBZW_Ka diyala_S PRIV PRIV [id number] [facility] 2023-04-13 00:00:00 2023-04-13 00:00:00 Outpatient GC_GCBZW_Ka diyala_S PRIV PRIV [id number] [facility] 2023-04-10 00:00:00 2023-04-10 00:00:00 Outpatient GC_GCBZW_Ka diyala_S PRIV PRIV [id number] [facility] 2023-04-07 00:00:00 2023-04-07 00:00:00 Outpatient GC_GCBZW_Ka diyala_S PRIV PRIV [id number] [facility] 2023-03-26 00:00:00 2023-03-26 00:00:00 (TEL) STLMLC STLMLC [id number] [facility] 2023-03-02 00:00:00 2023-03-02 00:00:00 (TEL) STLMLC STLMLC [id number] [facility] 2023-01-10 00:00:00 2023-01-10 00:00:00 Outpatient GC_GCBZW_Ka diyala_S PRIV PRIV [id number] [facility] 2022-12-26 00:00:00 2022-12-26 00:00:00 OFFICE VISIT ESTAB PT LEVEL 3 STLMLC STLMLC [id number] [facility] 2022-12-09 00:00:00 2022-12-09 00:00:00 (TEL) STLMLC STLMLC [id number] [facility] 2022-08-22 00:00:00 2022-08-22 00:00:00 OFFICE VISIT ESTAB PT LEVEL 4 STLMLC STLMLC [id number] [facility] 2022-05-09 00:00:00 2022-05-09 00:00:00 PREV VISIT EST AGE 40-64 STLMLC STLMLC [id number] [facility] 2022-02-05 00:00:00 2022-02-05 00:00:00 OFFICE VISIT EST PT LEVEL 3 STLMLC STLMLC [id number] [facility] 2021-09-10 00:00:00 2021-09-10 00:00:00 OFFICE VISIT EST PT LEVEL 3 STLMLC STLMLC [id number] [facility] 2021-05-29 00:00:00 2021-05-29 00:00:00 OFFICE VISIT EST PT LEVEL 3 STLMLC STLMLC [id number] [facility] 2021-05-15 00:00:00 2021-05-15 00:00:00 OFFICE VISIT EST PT LEVEL 3 STLMLC STLMLC [id number] [facility] 2021-05-08 00:00:00 2021-05-08 00:00:00 (TEL) STLMLC STLMLC [id number] [facility] 2021-03-22 18:15:00 2021-03-22 18:15:00 Outpatient FERNANDO DILLON [facility] [id number] [facility] 2021-01-04 00:00:00 2021-01-04 00:00:00 (TEL) STLMLC STLMLC [id number] [facility] 2021-01-03 00:00:00 2021-01-03 00:00:00 OFFICE VISIT EST PT LEVEL 3 STLMLC STLMLC [id number] [facility] 2021-01-03 00:00:00 2021-01-03 00:00:00 (TEL) STLMLC STLMLC [id number] [facility] 2020-06-27 00:00:00 2020-06-27 00:00:00 Outpatient STLMLC STLMLC [id number] [facility] 2020-04-12 17:37:00 2020-04-12 18:27:00 Emergency Don, K [facility] [id number] [facility] 2020-04-12 17:37:00 2020-04-12 18:27:00 [facility] [id number] 2020-04-12 17:24:00 2020-04-12 17:24:00 Emergency X [facility] ERT [id number] [facility] 2019-06-03 08:15:00 2019-06-03 08:15:[address] [facility] [id number] [facility] 2019-01-24 15:46:00 2019-01-24 15:46:00 [facility] [id number] [facility] 2018-08-30 13:30:00 2018-08-30 13:30:00 Outpatient [facility] [address] [facility] Medicine [id number] [facility] 2018-08-27 19:09:00 2018-08-27 19:09:00 Out[facility] [id number] [facility] 2018-05-06 15:14:00 2018-05-06 15:14:00 [facility] [id number] [facility] 2018-04-15 09:30:00 2018-04-15 09:30:00 Outpatient [facility] [place] [facility] Medicine [id number] [facility] 2017-08-24 14:00:00 2017-08-24 14:00:00 Out[facility] Medicine [id number] [facility] Results Test Description Test Time Test Comments Results Result Co mments Source CBC W/AUTO [id number] 00:00:00* Test Item Value Reference Range Interpretation Comme nts NUCLEATED RBCS (test code = 34942-5) 0.0 /100 WBC'S See_Comment [Automated messa ge] The system which generated this result transmitted reference range: 0.0 /100 WBC'S. The reference range was not used to interpret this result as normal/abnormal. ABSOLUTE EOSINOPHILS (test code = 13949-8) 0.13 K/UL See_Comment [Automated messa ge] The system which generated this result transmitted reference range: 0.00-0.50 K/UL. The reference range was not used to interpret this result as normal/abnormal. ABSOLUTE LYMPHOCYTES (test code = 40521-3) 1.63 K/UL See_Comment [Automated messa ge] The system which generated this result transmitted reference range: 1.00-4.00 K/UL. The reference range was not used to interpret this result as normal/abnormal. ABSOLUTE MONOCYTES (test code = 29002-3) 0.47 K/UL See_Comment [Automated messa ge] The system which generated this result transmitted reference range: 0.20-1.00 K/UL. The reference range was not used to interpret this result as normal/abnormal. ABSOLUTE NEUTROPHILS (test code = 70628-5) 3.44 K/UL See_Comment [Automated messa ge] The system which generated this result transmitted reference range: 1.50-7.50 K/UL. The reference range was not used to interpret this result as normal/abnormal. BASOPHILS (test code = 72374-0) 1.0 % EOSINOPHILS (test code = 13572-1) 2.3 % HEMATOCRIT (test code = 10993-8) 39.9 % See_Comment [Automated messa ge] The system which generated this result transmitted reference range: 34.0-45.0 %. The reference range was not used to interpret this result as normal/abnormal. HEMOGLOBIN (test code = 718-7) 13.5 G/DL See_Comment [Automated messa ge] The system which generated this result transmitted reference range: 11.5-15.5 G/DL. The reference range was not used to interpret this result as normal/abnormal. LYMPHOCYTES (test code = 05887-6) 28.4 % MCH (test code = 35062-0) 28.8 PG See_Comment [Automated messa ge] The system which generated this result transmitted reference range: 25.0-33.0 PG. The reference range was not used to interpret this result as normal/abnormal. MCHC (test code = 60625-5) 33.8 G/DL See_Comment [Automated messa ge] The system which generated this result transmitted reference range: 31.0-36.0 G/DL. The reference range was not used to interpret this result as normal/abnormal. MCV (test code = 41263-7) 85.3 fL See_Comment [Automated messa ge] The system which generated this result transmitted reference range: 80.0-99.0 fL. The reference range was not used to interpret this result as normal/abnormal. MONOCYTES (test code = 02097-9) 8.2 % NEUTROPHILS (test code = 07663-8) 59.9 % PLATELET COUNT (test code = 33695-3) 324 K/UL See_Comment [Automated messa ge] The system which generated this result transmitted reference range: 130-400 K/UL. The reference range was not used to interpret this result as normal/abnormal. RBC (test code = 59374-3) 4.68 M/UL See_Comment [Automated messa ge] The system which generated this result transmitted reference range: 3.80-5.40 M/UL. The reference range was not used to interpret this result as normal/abnormal. RDW (test code = 56079-8) 13.2 % See_Comment [Automated messa ge] The system which generated this result transmitted reference range: 11.5-15.0 %. The reference range was not used to interpret this result as normal/abnormal. WBC (test code = 94511-4) 5.7 K/UL See_Comment [Automated messa ge] The system which generated this result transmitted reference range: 3.5-11.0 K/UL. The reference range was not used to interpret this result as normal/abnormal. Notes Date/Time Note Provider Source 2023-08-21 04:03:15 Pt dc'd home ambulatory. Pt v/u of dc instructions and one time dose of diflucen. Marce Hubbard RN [facility] 2023-08-21 01:39:45 Pt arrived ambulatory without assist. Pt states "I got a real bad rash in my vaginal area and it has spread down in my legs. I have not been with my for awhile so I am worried he might be messing around behind my back." Martin RN [facility]
[2024-05-30 00:17] LABS: Absolute Basophils 0.1 K/uL (0-0.5); Absolute Eosinophils 0.2 K/uL (0-0.5); Absolute Lymphocytes (CBC) 1.7 K/uL (0.7-4.9); Absolute Monocytes 0.5 K/uL (0.1-1.3); Absolute Neutrophil 3.7 K/uL (1.8-8.0); Basophils % 1.3 % (0-1.3); Eosinophils % 3.7 % (0-4.4); Hematocrit 33.9 % (36.0-45.0); Lymphocytes % 26.9 % (15.3-44.8); MCH 23.4 pg (27.0-35.0); MCHC 32.5 g/dL (32.0-36.0); MPV 8.5 fL (7.6-11.3); Monocytes % 8.2 % (3.3-12.3); Neutrophils % 59.9 % (41.7-73.7); Nucleated Red Blood Cells % 0.2 % (0-0); Platelets 324 thou/uL (152-406); RBC Red Blood Cell Count 4.71 M/uL (3.86-4.86); Red Cell Distribution Width 16.2 % (12.1-15.2)
[2024-05-30 00:30] LABS: Anion Gap 11.3 mEq/L (5.0-15.0); Potassium 3.3 mEq/L (3.5-5.1); Troponin High Sensitivity 4.9 pg/mL (<58.9)
--- NOTE | 2024-05-30 00:34 | EDPHYS ---
Physician Documentation [facility] Name: Lilian Abraham Age: 48 yrs Sex: Female : 1975 Arrival Date: 05/29/2024 Time: 22:26 Bed 13 Private MD: ED Physician Harsh Marie HPI: 05/29 22:49 This 48 yrs old Female presents to ER via EMS with complaints of High Blood ec2 Pressure. 22:49 Patient arrives today for evaluation of anxiety and elevated blood pressure. Patient ec2 reports that she was driving and subsequently felt anxious after an emotional conversation with family member. Patient reports no chest pain, no shortness of breath, symptoms have since resolved. History of anxiety, history of hypertension. Does not take her prescribed medications.. 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 - Infectious Disease History:: Denies. - Social history:: Smoking status: Patient denies any tobacco usage or history of. ROS: 22:49 Constitutional: as per hpi ec2 Exam: 22:49 Constitutional: GEN: NAD Head: atraumatic Eyes: EOMI Ears: External ears are ec2 normal. CV: regular rate LUNGS: no respiratory distress ABD: non-distended SKIN: no evidence of rashes MSK: no evidence of trauma Vital Signs: 22:32 BP 186 / 87; Pulse 77; Resp 18; Temp 98.3; Pulse Ox 100% ; Weight 100.24 kg; Height 5 cp4 ft. 3 in. ; Pain 0/10; 23:58 BP 181 / 97; Pulse 91; Resp 18; Pulse Ox 99% ; cp4 05/30 00:06 BP 160 / 81; cp4 00:41 BP 163 / 79; Pulse 87; Resp 18; Pulse Ox 99% ; cp4 05/29 22:32 Body Mass Index 39.15 (100.24 kg, 160.02 cm) cp4 05/29 22:32 Pain Scale: Adult cp4 MDM: 05/29 22:29 Medical Screening Exam initiated ec2 22:49 Data reviewed: vital signs, nurses notes. ED course: Patient arrives today for ec2 evaluation of elevated blood pressure and anxiety. Examination yields well-appearing nontoxic cooperative individual is otherwise in no acute distress. EKG obtained, independently reviewed and interpreted by me, shows normal sinus rhythm, rate 77, no acute ST segment elevations, intervals are nonactionable. Will obtain cardiac workup as well. DDx include processes such as anxiety, electrolyte disturbances, arrhythmia.. 05/30 00:33 ED course: Labs are nonactionable, slight hypokalemia. Will discharge home. ec2 Presentation consistent with anxiety. Return precautions given.. 05/29 22:28 Order name: Basic Metabolic Panel; Complete Time: 00:33 ec2 05/29 22:28 Order name: CBC with Diff; Complete Time: 00:20 ec2 05/29 22:28 Order name: Troponin HS; Complete Time: 00:33 ec2 05/29 22:28 Order name: EKG; Complete Time: 22:29 ec2 05/29 22:28 Order name: Cardiac monitoring; Complete Time: 22:32 ec2 05/29 22:28 Order name: EKG - Nurse/Tech; Complete Time: 22:43 ec2 05/29 22:28 Order name: IV Saline Lock; Complete Time: 23:55 ec2 05/29 22:28 Order name: Labs collected and sent; Complete Time: 23:55 ec2 05/29 22:28 Order name: O2 Per Protocol; Complete Time: 22:32 ec2 05/29 22:28 Order name: O2 Sat Monitoring; Complete Time: 22:32 ec2 Administered Medications: No medications were administered Disposition Summary: 05/30/24 00:34 Discharge Ordered Notes: Location: Home ec2 Condition: Stable ec2 Diagnosis - Generalized anxiety disorder ec2 - Hypokalemia ec2 Followup: ec2 - With: Private Physician - When: - Reason: Re-evaluation by your physician Discharge Instructions: - Discharge Summary Sheet ec2 - Potassium Content of Foods ec2 - Panic Attack, [id number] ec2 Forms: - Medication Reconciliation Form ec2 - Antibiotic Education ec2 - Prescription Opioid Use ec2 - Patient Portal Instructions ec2 - Leadership Thank You Letter ec2 Prescriptions: - Hydroxyzine HCl 25 mg Oral Tablet - take 1 tablet ORAL route every 6 hours As needed; 30 tablet; Refills: 0, ec2 Product Selection Permitted Signatures: Dispatcher [employer] EDMS Harsh Marie MD MD ec2 Potter, Cherelle cp4 Corrections: (The following items were deleted from the chart) 05/29 22:29 BASIC METABOLIC PANEL+C.LAB.BRZ ordered. EDMS EDMS : CBC+H.LAB.BRZ ordered. EDMS EDMS : Troponin High Sensitivity+C.LAB.BRZ ordered. EDMS EDMS
--- NOTE | 2024-05-30 00:34 | ER ---
Nurse's Notes [facility] Name: Lilian Abraham Age: 48 yrs Sex: Female : 1975 Arrival Date: 05/29/2024 Time: 22:26 Bed 13 Private MD: Diagnosis: Generalized anxiety disorder;Hypokalemia Presentation: 05/29 22:32 Chief complaint: Patient states: hypertension and anxiety. Patient was at the store cp4 when she had an anxiety attack. Coronavirus screen: Client denies travel out of the [place] in the last 14 days. At this time, the client does not indicate any symptoms associated with coronavirus-19. Ebola Screen: Patient negative for fever greater than or equal to 101.5 degrees Fahrenheit, and additional compatible Ebola Virus Disease symptoms Patient denies exposure to infectious person. Patient denies travel to an Ebola-affected area in the 21 days before illness onset. No symptoms or risks identified at this time. Initial Sepsis Screen: Does the patient meet any 2 criteria? No. Patient's initial sepsis screen is negative. Does the patient have a suspected source of infection? No. Patient's initial sepsis screen is negative. Risk Assessment: Do you want to hurt yourself or someone else? Patient reports no desire to harm self or others. Onset of symptoms was May 29, 2024. 22:32 Method Of Arrival: EMS: [facility] cp4 22:32 Acuity: OANH 3 cp4 Triage Assessment: 22:33 General: Appears in no apparent distress. comfortable, Behavior is calm, cooperative, cp4 appropriate for age. Pain: Denies pain. EENT: No signs and/or symptoms were reported regarding the EENT system. Neuro: Level of Consciousness is awake, alert, obeys commands, Oriented to person, place, time, situation. Cardiovascular: Patient's skin is warm and dry. Rhythm is sinus rhythm. Respiratory: Airway is patent Respiratory effort is even, unlabored. GI: No signs and/or symptoms were reported involving the gastrointestinal system. : No signs and/or symptoms were reported regarding the genitourinary system. Derm: No signs and/or symptoms reported regarding the dermatologic system. Musculoskeletal: No signs and/or symptoms reported regarding the musculoskeletal system. 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 - Infectious Disease History:: Denies. - Social history:: Smoking status: Patient denies any tobacco usage or history of. Screenin:56 [facility] ED Fall Risk Assessment (Adult) History of falling in the last 3 months, cp4 including since admission No falls in past 3 months (0 pts) Confusion or Disorientation No (0 pts) Intoxicated or Sedated No (0 pts) Impaired Gait No (0 pts) Mobility Assist Device Used No (0 pt) Altered Elimination No (0 pt) Score/Fall Risk Level 0 - 2 = Low Risk Oriented to surroundings, Maintained a safe environment, Assessed \T\ reinforced patient's understanding of fall precautions, Hourly rounding (assess needs \T\ fall precautionary measures) done. Abuse screen: Denies threats or abuse. Denies injuries from another. Nutritional screening: No deficits noted. Tuberculosis screening: No symptoms or risk factors identified. Assessment: 23:56 Reassessment: No changes from previously documented assessment. cp4 Vital Signs: 22:32 BP 186 / 87; Pulse 77; Resp 18; Temp 98.3; Pulse Ox 100% ; Weight 100.24 kg; Height 5 cp4 ft. 3 in. ; Pain 0/10; 23:58 BP 181 / 97; Pulse 91; Resp 18; Pulse Ox 99% ; cp4 03/17 00:06 BP 160 / 81; cp4 00:41 BP 163 / 79; Pulse 87; Resp 18; Pulse Ox 99% ; cp4 03 22:32 Body Mass Index 39.15 (100.24 kg, 160.02 cm) cp4 03 22:32 Pain Scale: Adult cp4 ED Course: 05/29 22:28 Patient arrived in ED. cp4 22:28 Harsh Marie MD is Attending Physician. ec2 22:32 Cherelle Durant is Primary Nurse. cp4 22:33 Triage completed. cp4 22:36 EKG done, by ED staff, reviewed by Harsh Marie MD. sa1 23:02 Missed attempt(s): 20 gauge antecubital area. Bleeding controlled, band aid applied, sa1 catheter tip intact. 23:55 Arm band placed on right wrist. Patient placed in an exam room. cp4 23:56 No provider procedures requiring assistance completed. Missed attempt(s): 22 gauge in cp4 right antecubital area. 23:56 Inserted saline lock: 20 gauge in left antecubital area, using aseptic technique. cp4 23:56 Bed in low position. Call light in reach. Side rails up X2. cp4 05/30 00:41 intact, bleeding controlled, No redness/swelling at site. Pressure dressing applied. cp4 00:41 Provided Education on: panic attacks. cp4 Administered Medications: No medications were administered Medication: 05/29 23:56 VIS not applicable for this client. cp4 Outcome: 05/30 00:34 Discharge ordered by MD. ec2 00:41 Discharged to home ambulatory, cp4 00:41 Condition: stable 00:41 Discharge instructions given to patient, family, Instructed on discharge instructions, follow up and referral plans. medication usage, Demonstrated understanding of instructions, follow-up care, medications, Prescriptions given X 1, 00:42 Patient left the ED. cp4 Signatures: Harsh Marie MD MD ec2 Cherelle Durant cp4 [place] Marybeth 1
[2024-05-30 00:48] VITALS: TEMP 98.3
[2024-05-30 00:49] VITALS: O2SAT 99
[2024-05-30 00:51] VITALS: BP 163/79
--- NOTE | 2024-06-01 12:41 | EKG ---
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
== END 2024-05-30 00:42 | disposition home or self-care (01) ==
LOC: ER 22:26
DX: F41.1 Generalized anxiety disorder (principal); E87.6 Hypokalemia
CPT/HCPCS: 36415; 80048; 84484; 85025; 93005; 99284